=== PATIENT | female | born 1955 | race Caucasian/White ===

== ENCOUNTER 2024-08-02 23:07 | Observation (INO) ==
--- NOTE | 2024-08-02 23:28 | Emergency Department Note ---
Impression & Plan SVT (supraventricular tachycardia) ADMIT ED Provider Note HPI: History obtained from The patient is a 68-year-old female who presents the emergency department with chief complaint of palpitations. Patient states earlier this evening she had a sensation of chest pressure with palpitations and when she checked her Fitbit her heart rate was elevated in the 190s. Patient states that until this episode she was otherwise in her normal state of health. She does state that she recently returned home from a trip to [place]. On arrival here to the ED the patient is with stable blood pressure, heart rate is elevated in the 190s consistent with SVT on the monitor. ROS: - Per HPI Differential Diagnosis: Arrhythmia to include SVT, atrial fibrillation with RVR, ventricular tachycardia, WPW, amongst other potential pathologies. *Outpatient medications and allergy history reviewed. 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 Lab work shows no leukocytosis, hemoglobin is normal, platelet count is normal, CMP does not show any evidence of any critical findings, there is a mild transaminitis noted with AST of 52, ALT of 67, alk phos of 113. Troponin is elevated at 148. Presenting EKG showed evidence of SVT, patient's blood pressure was otherwise stable. Patient was given 12 mg of adenosine IV push with good conversion back to sinus rhythm. Patient tolerated this procedure well. Given the patient's recent trip to [place], CT angiography of the chest was obtained that does not show any evidence of PE. On my reassessment the patient remains in sinus rhythm on the monitor, she is resting comfortably in bed. I suspect that her troponin level is likely related to demand ischemia. Given her elevated troponin with new arrhythmia this evening I do feel that she would benefit from inpatient admission for trending of enzyme levels and further testing as well as cardiology consultation. The patient is in agreement to this plan. Case was discussed with the on-call hospitalist for [facility], Dr. Acuna, and the patient was placed for admission in stable condition. Consultants/Discussions held with other healthcare providers: -Hospitalist, Dr. Acuna Disposition discussion held by myself with: -Patient and family at bedside * CRITICAL CARE TIME: ( 46 ) minutes -Stabilization of arrhythmia/SVT requiring IV adenosine for conversion back to sinus rhythm, time spent at the bedside, interpretation of diagnostic studies including multiple EKGs, discussion with other healthcare providers and arrangement of admission. Diagnosis: 1. SVT, acute 2. Elevated troponin, acute 3. Transaminitis, acute, mild, nonspecific Disposition: Admission Balwinder Mccallum DO Emergency Medicine Past Med/Surg History Problem List (Updated 08/03/24 @ 01:23 by Balwinder Mccallum DO) SVT (supraventricular tachycardia) (Acute) Social History Smoking Status: Unknown if ever smoked Feels Safe at Home: Yes Allergies Allergies Allergy/AdvReac Type Severity Reaction Status Date / Time No Known Allergies Allergy Unverified 02/14/11 18:18 Home Meds Home Medications Medication Instructions Recorded Confirmed Ascorbic Acid (Vitamin C *) 500 mg PO DAILY ##0 02/14/11 Fish Oil ([place]-3) 1 cap PO ##0 02/14/11 Ibuprofen (Advil) 200 mg PO ##0 02/14/11 Multivitamin 1 tab PO DAILY ##0 02/14/11 Results & Data (ED) Vital Signs Vital Signs - 24 hr 08/02/24 23:09 08/02/24 23:15 08/02/24 23:23 Temperature 36.9 C Temperature Source Temporal Artery Scan Pulse Rate 216 H 197 H 115 H Pulse Rate [Apical] Respiratory Rate 19 Respiratory Effort / Characteristics Respiratory Depth Respiratory Pattern Blood Pressure 114/87 Blood Pressure [Right Arm] Blood Pressure Mean 96 Blood Pressure Mean [Right Arm] Blood Pressure Position [Right Arm] Pulse Oximetry 95 Oxygen Delivery Method Room Air Sepsis Recent Fever Within 48 Hours No Sepsis New/Unexplained Change in Mental Status N/A Sepsis Action Taken by Nursing No Action Required 08/02/24 23:36 08/02/24 23:36 08/02/24 23:36 Temperature Temperature Source Pulse Rate Pulse Rate [Apical] 95 H Respiratory Rate 18 Respiratory Effort / Characteristics Non-Labored Spontaneous Respiratory Depth Normal Respiratory Pattern Regular Blood Pressure Blood Pressure [Right Arm] 102/74 Blood Pressure Mean Blood Pressure Mean [Right Arm] 83 Blood Pressure Position [Right Arm] Sitting Pulse Oximetry 97 96 96 Oxygen Delivery Method Room Air Room Air Room Air Sepsis Recent Fever Within 48 Hours Sepsis New/Unexplained Change in Mental Status Sepsis Action Taken by Nursing Laboratory Data 08/02/24 23:28 08/02/24 23:28 Lab Results 08/02/24 Range/Units 23:28 WBC 10.56 (4.8-10.8) K/ul RBC 4.85 (4.20-5.40) M/uL Hgb 15.5 (12.0-16.0) g/dl Hct 44.1 (37.0-47.0) % MCV 90.9 (80.0-100.0) fL MCH 32.0 (25.0-34.0) pg MCHC 35.1 (32.0-36.0) g/dL RDW Std Deviation 47.0 H (36.4-46.3) fL RDW Coeff of Prashanth 13.9 (11.5-14.5) % Plt Count 302 (130-400) K/uL MPV 9.0 L (9.4-12.4) fL Immature Gran % (Auto) 0.2 % Neut % (Auto) 60.7 % Lymph % (Auto) 27.7 % [place] % (Auto) 9.8 % Eos % (Auto) 0.9 % Baso % (Auto) 0.7 % Neut # (Auto) 6.41 (1.40-6.50) K/uL Lymph # (Auto) 2.93 (1.20-3.40) K/uL [place] # (Auto) 1.03 H (0.11-0.59) K/uL Eos # (Auto) 0.10 (0.00-0.50) K/uL Baso # (Auto) 0.07 (0.00-0.20) K/uL Immature Gran # (Auto) 0.02 (0.01-0.20) K/uL PT 10.3 (9.0-12.0) Seconds INR 0.9 (0.9-1.1) Sodium 138 (136-145) mmol/L Potassium 4.3 (3.5-5.1) mmol/L Chloride 104 (98-107) mmol/L Carbon Dioxide 23 (21-32) mmol/L Anion Gap 11 (3-11) BUN 14 (6-23) mg/dl Creatinine 1.18 (0.6-1.2) mg/dl Est Cr Clr Drug Dosing 37.4 ml/min eGFR 50.94 BUN/Creatinine Ratio 11.9 (10-20) Glucose 136 H (70-99(Fasting)) mg/dl Calcium 10.9 H (8.6-10.3) mg/dl Magnesium 2.2 (1.7-2.4) mg/dl Total Bilirubin 0.6 (0.2-1.0) mg/dl AST 52 H (13-39) U/L ALT 67 H (7-52) U/L Alkaline Phosphatase 113 H (34-104) U/L Troponin I High Sens 148.2 H* (0-14) pg/ml Total Protein 7.7 (6.0-8.3) gm/dl Albumin 4.4 (3.4-5.0) gm/dl Globulin 3.3 (2.5-4.0) gm/dl Albumin/Globulin Ratio 1.3 (0.9-2) Lipase 48 (11-82) U/L TSH 5.133 H (0.300-4.500) uIu/ml Free T4 0.86 (0.61-1.60) ng/dl Administered Medications Discontinued Medications Adenosine (Adenosine Iv Soln 3 Mg/Ml 2 Ml Vial) Confirm Administered Dose 6 mg IV .STK-MED ONE Stop: 08/02/24 23:17 Last Admin: 08/02/24 23:30 Dose: 12 mg Documented By: ISADORA Sodium Chloride (Nss) 1,000 mls @ 999 mls/hr IV .Q1H1M ONE Stop: 08/03/24 00:27 Last Infusion: 08/03/24 00:51 Dose: Infused Documented By: Admin: 08/02/24 23:30 Dose: 999 mls/hr Documented By: ISADORA Ioversol (Optiray 320 125ml) 82 ml IV ONCE ONE Stop: 08/03/24 00:42 Last Admin: 08/03/24 00:42 Dose: 82 ml Documented By: PLW Imaging Data Radiologist's Impression: Chest CTA 08/02/24 23:26 Exam(s): CTA CHEST IV Amt: 82 ml opti 320 EXAM: CT Angiography Chest With Intravenous Contrast CLINICAL HISTORY: Reason for exam: PE. TECHNIQUE: Axial computed tomographic angiography images of the chest with intravenous contrast. CTDI is 11.87 mGy and DLP is 5.94 mGy-cm. Automated exposure control was utilized for the study. A dose lowering technique was utilized adhering to the principles of ALARA. MIP reconstructed images were created and reviewed. COMPARISON: No relevant prior studies available. FINDINGS: LUNGS: No focal consolidation, pleural effusion, or pneumothorax. HEART: Within normal limits. VASCULATURE: No acute pulmonary embolism. THYROID: Within normal limits. MEDIASTINUM + LYMPH NODES: There are no pathologically enlarged mediastinal, hilar, or axillary lymph nodes. SUPERIOR ABDOMEN: The included portions of the superior abdomen are within normal limits. MUSCULOSKELETAL: Within normal limits. IMPRESSION: No acute pulmonary embolism. Electronically signed by: Marcus Bose MD 08/03/24 00:52 AM Discharge Plan Visit Data Chief Complaint: Cardiac Assessment Stated Complaint: HEART PALPATATIONS, CHEST PAIN, DIZZY, SOB ED Provider: Balwinder Mccallum Discharge Problem: SVT (supraventricular tachycardia) Forms Stand Alone Forms: [facility] [place] HitchedPic Prescriptions Prescriptions: No Action Ascorbic Acid (Vitamin C *) 500 MG tablet 500 mg PO DAILY Qty: 0 Fish Oil ([place]-3) 1 EA capsule 1 cap PO Qty: 0 Multivitamin tablet 1 tab PO DAILY Qty: 0 Ibuprofen (Advil) 200 MG tablet 200 mg PO Qty: 0 Referrals Referrals: Mark Prado MD [Outside Practitioners] -
[2024-08-02] MEDS: ADENOSINE IV SOLN 3 MG/ML 2 ML VIAL IV ONE (23:30)
[2024-08-02] MEDS: SODIUM CHLORIDE 0.9% 1,000 ML IV ONE (23:30)
[2024-08-02 23:47] LABS: Basophils # (auto) 0.07 K/uL (0.00-0.20); Basophils % (auto) 0.7 %; Eosinophils % (auto) 0.9 %; Hematocrit (blood only) 44.1 % (37.0-47.0); Hemoglobin 15.5 g/dl (12.0-16.0); Immature Granulocytes # (auto) 0.02 K/uL (0.01-0.20); Immature Granulocytes % (auto) 0.2 %; Lymphocytes # (auto) 2.93 K/uL (1.20-3.40); Lymphocytes % (auto) 27.7 %; Mean Corpuscular Hgb Conc 35.1 g/dL (32.0-36.0); Mean Corpuscular Volume 90.9 fL (80.0-100.0); Monocytes # (auto) 1.03 K/uL (0.11-0.59); Monocytes % (auto) 9.8 %; Neutrophils # (auto) 6.41 K/uL (1.40-6.50); Neutrophils % (auto) 60.7 %; Platelet Count 302 K/uL (130-400); RDW Coefficient of Variation 13.9 % (11.5-14.5); Red Blood Count 4.85 M/uL (4.20-5.40); White Blood Count 10.56 K/ul (4.8-10.8)
[2024-08-03 00:12] LABS: INR 0.9 (0.9-1.1); Prothrombin Time 10.3 Seconds (9.0-12.0)
[2024-08-03 00:13] LABS: Albumin Globulin Ratio 1.3 (0.9-2); Albumin Level 4.4 gm/dl (3.4-5.0); BUN Creatinine Ratio 11.9 (10-20); Bilirubin,Total 0.6 mg/dl (0.2-1.0); Calcium 10.9 mg/dl (8.6-10.3); Creatinine Clr Calc Pharmacy 37.4 ml/min; Globulin 3.3 gm/dl (2.5-4.0); Magnesium 2.2 mg/dl (1.7-2.4); Potassium 4.3 mmol/L (3.5-5.1); Total Protein 7.7 gm/dl (6.0-8.3)
[2024-08-03 00:22] LABS: Troponin I High Sensitivity 148.2 pg/ml (0-14)
[2024-08-03 00:28] LABS: Thyroid Stimulating Hormone 5.133 uIu/ml (0.300-4.500)
[2024-08-03] MEDS: OPTIRAY 320 125ml IV ONE (00:42)
--- NOTE | 2024-08-03 00:54 | CT Scan Report ---
Exam(s): CTA CHEST IV Amt: 82 ml opti 320 EXAM: CT Angiography Chest With Intravenous Contrast CLINICAL HISTORY: Reason for exam: PE. TECHNIQUE: Axial computed tomographic angiography images of the chest with intravenous contrast. CTDI is 11.87 mGy and DLP is 5.94 mGy-cm. Automated exposure control was utilized for the study. A dose lowering technique was utilized adhering to the principles of ALARA. MIP reconstructed images were created and reviewed. COMPARISON: No relevant prior studies available. FINDINGS: LUNGS: No focal consolidation, pleural effusion, or pneumothorax. HEART: Within normal limits. VASCULATURE: No acute pulmonary embolism. THYROID: Within normal limits. MEDIASTINUM + LYMPH NODES: There are no pathologically enlarged mediastinal, hilar, or axillary lymph nodes. SUPERIOR ABDOMEN: The included portions of the superior abdomen are within normal limits. MUSCULOSKELETAL: Within normal limits. IMPRESSION: No acute pulmonary embolism. Electronically signed by: Marcus Bose MD 08/03/24 00:52 AM
[2024-08-03 01:05] LABS: T4 Free Thyroxine 0.86 ng/dl (0.61-1.60)
[2024-08-03] MEDS: SODIUM CHLORIDE 0.9% 1,000 ML IV ONE ×2 (01:32→08:28)
[2024-08-03 01:40] LABS: Partial Thromboplastin Time 28 Seconds (21-31)
--- NOTE | 2024-08-03 01:58 | History & Physical Report ---
Date of Service August 03, 2024 Assessment & Plan (1) SVT (supraventricular tachycardia): Plan: PSVT Successful conversion post adenosine administration at the ER. Possibly from mild clinical dehydration given mild hypercalcemia rule out viral URTI Troponin elevation secondary to above Asymptomatic transaminitis Hyperglycemia rule out DM OBS PCU Respiratory BioFire IVF Follow troponin TTE, Cardiology consult Re: PSVT Follow LFTs, liver ultrasound for progression Check hemoglobin A1c DVT prophylaxis. SCDs Full code Patient requesting updates providers. Mr. Jasvir Tanner, contact #[phone]. Text document was generated using [employer] voice recognition software. It may contain grammatical or spelling errors. Kindly contact undersigned for clarification of any documentation item in question. History of Present Illness Chief Complaint: Palpitations, chest pressure Primary Care Provider: Cynthia Rinaldi PA-C History obtained from patient, family, and records. No significant medical history. Patient was lying down on a couch today when she experienced palpitations associated with achy chest pressure. [place] like she was going to pass out. Patient denies abdominal pain or dysuria symptoms. No decongestant/inordinate caffeine intake. Not drinking as much water yesterday secondary to possible congestion. Similar episode many years ago which led to a stress test as per patient. Patient noted to be in SVT upon arrival at the ER. Heart rate 200s. SVT terminated after adenosine administration at the ER. Patient currently comfortable. Medical History as above Surgical History : Cholecystectomy, cataract surgeries, fibula fracture surgery, wrist fracture surgery Family History : Breast cancer, DM, heart disease Personal/Social history : Non-smoker, no EtOH intake, medical payment poster Allergies Allergy/AdvReac Type Severity Reaction Status Date / Time No Known Allergies Allergy Unverified 08/03/24 01:25 Home Medications Medication Instructions Recorded Confirmed Type [place] 3 Fish Oil 1 cap PO DAILY ##0 02/14/11 08/03/24 History ascorbic acid (vitamin C) 500 mg 500 mg PO DAILY ##0 02/14/11 08/03/24 History tablet ibuprofen 200 mg tablet 200 mg PO Q6H PRN Pain ##0 02/14/11 08/03/24 History multivitamin 1 tab PO DAILY ##0 02/14/11 08/03/24 History Past Med/Surg History Problem List (Updated 10/03/24 @ 01:23 by Balwinder Mccallum DO) SVT (supraventricular tachycardia) (Acute) Social History Smoking Status: Never smoker Second Hand Exposure: No; Do You Dip or Chew Tobacco: No; Tobacco Cessation Education Requested by Patient: No Hx Alcohol Use: No Hx Substance Use: No Preferred Language: [place] Communication Ability: 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 Beliefs That Will Affect Care: None Current Living Situation: Spouse Other Information That Helps Us Care for You: No Feels Safe at Home: Yes Safety Concerns: Feels Safe At This Time Assistive Devices: None Review of Systems Review of Systems: As per HPI, all other systems reviewed and negative Physical Exam Physical Exam: GENERAL: Comfortable, pleasant, no respiratory distress SKIN: Normal color, warm HEENT: [place] palpebral conjunctivae, no ptosis, dry buccal mucosa NECK : Supple, no tenderness CHEST : CTA, no tenderness HEART : RRR, no obvious murmurs ABDOMEN: Some distention, nontender EXTREMITIES : No LE swelling/tenderness, no other conspicuous deformities noted NEUROLOGIC : Coherent, no facial asymmetry, no other gross focality Results & Data Results & Data Vital Signs (Past 12 Hours) Vital Signs Temp Pulse Pulse Resp BP BP Pulse Ox 08/03/24 01:08 81 18 99/73 L 95 08/02/24 23:36 96 08/02/24 23:36 95 H 18 102/74 96 08/02/24 23:36 97 08/02/24 23:23 115 H 08/02/24 23:15 197 H 08/02/24 23:09 36.9 C 216 H 19 114/87 95 O2 Del Method 08/03/24 01:08 Room Air 08/02/24 23:36 Room Air 08/02/24 23:36 Room Air 08/02/24 23:36 Room Air 08/02/24 23:23 08/02/24 23:15 08/02/24 23:09 Room Air Laboratory Results Laboratory Results WBC 10.56 K/ul (4.8-10.8) 08/02/24 23:28 RBC 4.85 M/uL (4.20-5.40) 08/02/24 23:28 Hgb 15.5 g/dl (12.0-16.0) 08/02/24 23:28 Hct 44.1 % (37.0-47.0) 08/02/24 23:28 MCV 90.9 fL (80.0-100.0) 08/02/24 23: MCH 32.0 pg (25.0-34.0) 08/02/24: MCHC 35.1 g/dL (32.0-36.0) 08/02/24: RDW Std Deviation 47.0 fL (36.4-46.3) H 08/02/24: RDW Coeff of Prashanth 13.9 % (11.5-14.5) 08/02/24: Plt Count 302 K/uL (130-400) 08/02/24: MPV 9.0 fL (9.4-12.4) L 08/02/24: Immature Gran % (Auto) 0.2 % 08/02/24 23: Neut % (Auto) 60.7 % 08/02/24 23: Lymph % (Auto) 27.7 % 08/02/24 23: [place] % (Auto) 9.8 % 08/02/24 23: Eos % (Auto) 0.9 % 08/02/24: Baso % (Auto) 0.7 % 08/02/24: Neut # (Auto) 6.41 K/uL (1.40-6.50) 08/02/24: Lymph # (Auto) 2.93 K/uL (1.20-3.40) 08/02/24 23: [place] # (Auto) 1.03 K/uL (0.11-0.59) H 08/02/24 23: Eos # (Auto) 0.10 K/uL (0.00-0.50) 08/02/24 23: Baso # (Auto) 0.07 K/uL (0.00-0.20) 08/02/24: Immature Gran # (Auto) 0.02 K/uL (0.01-0.20) 08/02/24 23: PT 10.3 Seconds (9.0-12.0) 08/02/24 23: INR 0.9 (0.9-1.1) 08/02/24 23: APTT 28 Seconds (21-31) 08/02/24 23:28 PTT Ratio 1.0 08/02/24 23:28 Sodium 138 mmol/L (136-145) 08/02/24 23:28 Potassium 4.3 mmol/L (3.5-5.1) 08/02/24 23:28 Chloride 104 mmol/L (98-107) 08/02/24 23:28 Carbon Dioxide 23 mmol/L (21-32) 08/02/24 23:28 Anion Gap 11 (3-11) 08/02/24 23:28 BUN 14 mg/dl (6-23) 08/02/24 23:28 Creatinine 1.18 mg/dl (0.6-1.2) 08/02/24 23:28 Est Cr Clr Drug Dosing 37.4 ml/min 08/02/24 23: eGFR 50.94 08/02/24 23:28 BUN/Creatinine Ratio 11.9 (10-20) 08/02/24 23:28 Glucose 136 mg/dl (70-99(Fasting)) H 08/02/24 23:28 Calcium 10.9 mg/dl (8.6-10.3) H 08/02/24 23:28 Magnesium 2.2 mg/dl (1.7-2.4) 08/02/24 23:28 Total Bilirubin 0.6 mg/dl (0.2-1.0) 08/02/24 23:28 AST 52 U/L (13-39) H 08/02/24 23:28 ALT 67 U/L (7-52) H 08/02/24 23:28 Alkaline Phosphatase 113 U/L (34-104) H 08/02/24 23:28 Troponin I High Sens 148.2 pg/ml (0-14) H* 08/02/24 23:28 Total Protein 7.7 gm/dl (6.0-8.3) 08/02/24 23:28 Albumin 4.4 gm/dl (3.4-5.0) 08/02/24 23:28 Globulin 3.3 gm/dl (2.5-4.0) 08/02/24 23:28 Albumin/Globulin Ratio 1.3 (0.9-2) 08/02/24 23:28 Lipase 48 U/L (11-82) 08/02/24 23:28 TSH 5.133 uIu/ml (0.300-4.500) H 08/02/24 23:28 Free T4 0.86 ng/dl (0.61-1.60) 08/02/24 23:28 Impressions Chest CTA 08/02/24 23:26 Exam(s): CTA CHEST IV Amt: 82 ml opti 320 EXAM: CT Angiography Chest With Intravenous Contrast CLINICAL HISTORY: Reason for exam: PE. TECHNIQUE: Axial computed tomographic angiography images of the chest with intravenous contrast. CTDI is 11.87 mGy and DLP is 5.94 mGy-cm. Automated exposure control was utilized for the study. A dose lowering technique was utilized adhering to the principles of ALARA. MIP reconstructed images were created and reviewed. COMPARISON: No relevant prior studies available. FINDINGS: LUNGS: No focal consolidation, pleural effusion, or pneumothorax. HEART: Within normal limits. VASCULATURE: No acute pulmonary embolism. THYROID: Within normal limits. MEDIASTINUM + LYMPH NODES: There are no pathologically enlarged mediastinal, hilar, or axillary lymph nodes. SUPERIOR ABDOMEN: The included portions of the superior abdomen are within normal limits. MUSCULOSKELETAL: Within normal limits. IMPRESSION: No acute pulmonary embolism. Electronically signed by: Marcus Bose MD 08/03/24 00:52 AM Diagnostic Findings EKG as per my interpretation :Rate 200, SVT, normal axis, ST depression anterolateral leads
[2024-08-03] MEDS ORDERED: traMADol HCL 50 MG TABLET PO PRN (02:00)
[2024-08-03] MEDS ORDERED: hydrOXYzine HCl 10 MG TAB PO PRN (02:00)
[2024-08-03] MEDS ORDERED: ACETAMINOPHEN 325 MG TAB PO PRN (02:00)
[2024-08-03] MEDS ORDERED: PROMETHAZINE 6.25 MG/50.25 ML BAG IV PRN (02:00)
[2024-08-03 02:35] LABS: Troponin I High Sensitivity 349.5 pg/ml (0-14)
[2024-08-03 05:05] LABS: Adenovirus PCR Not Detected (NotDetected); Bordetella parapertussis PCR Not Detected (NotDetected); Bordetella pertussis PCR Not Detected (NotDetected); Chlamydia pneumoniae PCR Not Detected (NotDetected); Coronavirus 229E PCR Not Detected (NotDetected); Coronavirus CoV-2 (COVID19)PCR DETECTED (NotDetected); Coronavirus HKU1 PCR Not Detected (NotDetected); Coronavirus NL63 PCR Not Detected (NotDetected); Coronavirus OC43PCR Not Detected (NotDetected); Human Metapneumovirus PCR Not Detected (NotDetected); Influenza A PCR Not Detected (NotDetected); Influenza B PCR Not Detected (NotDetected); Mycoplasma pneumoniae PCR Not Detected (NotDetected); Parainfluenza Virus 1 PCR Not Detected (NotDetected); Parainfluenza Virus 2 PCR Not Detected (NotDetected); Parainfluenza Virus 3 PCR Not Detected (NotDetected); Parainfluenza Virus 4 PCR Not Detected (NotDetected); Respiratory Syncytial VirusPCR Not Detected (NotDetected); Rhinovirus/Enterovirus PCR Not Detected (NotDetected)
[2024-08-03 07:12] LABS: Albumin Level 3.4 gm/dl (3.4-5.0); Bilirubin Direct 0.1 mg/dl (0-0.2); Bilirubin,Total 0.6 mg/dl (0.2-1.0); Total Protein 5.7 gm/dl (6.0-8.3)
[2024-08-03 07:20] LABS: Troponin I High Sensitivity 496.9 pg/ml (0-14)
--- NOTE | 2024-08-03 07:20 | Electrocardiogram Report ---
Test Reason : Blood Pressure : */* mmHG Vent. Rate : 198 BPM Atrial Rate : * BPM P-R Int : * ms QRS Dur : 64 ms QT Int : 216 ms P-R-T Axes : * 30 92 degrees QTcB Int : 392 ms Supraventricular tachycardia Abnormal ECG Confirmed by Zak Rm ([id number]) on 08/03/2024 7:20:30 AM Referred By: Confirmed By: Zak Rm
--- NOTE | 2024-08-03 07:24 | Hospitalist Progress Note ---
Date of Service August 03, 2024 Assessment & Plan (1) SVT (supraventricular tachycardia): Plan Pt is a 68yoF with no significant past medical history presenting for evaluation of palpitations. Found to be in SVT in the ED. PSVT Presented with HR in the 200s Successful conversion post adenosine administration in the ER. Pt tested positive for covid on respiratory biofire CTA chest unremarkable IV fluids Echo pending Cardiology consulted, appreciate recs COVID-19 Infection Pt with recent URI symptoms Pt tested positive for covid on respiratory biofire No noted hypoxia CTA chest unremarkable Symptomatic/supportive treatment Continue to monitor Troponin elevation Trop elevated at 148.2 to 349.5 to 496.9 EKG with noted SVT as above likely elevated in setting of above Cardiology consulted, appreciate further recs Asymptomatic transaminitis Liver enzymes elevated on admission Currently normal on recheck liver ultrasound for progression Continue to monitor Hypercalcemia Calcium elevated PTH normal Follow ionized [place] Hyperglycemia rule out DM Hgba1c pending Diet: currently NPO DVT prophylaxis: SCDs CODE STATUS: Full code Dispo: Home once medically stable Admission and Anticipated Discharge Date Admission Date: August 03, 2024 Results & Data Results & Data Vital Signs (Past 12 Hours) Vital Signs Temp Pulse Pulse Resp BP BP Pulse Ox 08/03/24 02:59 36.8 C 70 18 104/71 95 08/03/24 02:42 78 08/03/24 02:41 36.8 C 70 18 104/71 95 08/03/24 02:16 78 99/73 L 95 08/03/24 01:08 81 18 99/73 L 95 08/02/24 23:36 96 08/02/24 23:36 95 H 18 102/74 96 08/02/24 23:36 97 08/02/24 23:23 115 H 08/02/24 23:15 197 H 08/02/24 23:09 36.9 C 216 H 19 114/87 95 O2 Del Method 08/03/24 02:59 Room Air 08/03/24 02:42 08/03/24 02:41 Room Air 08/03/24 02:16 Room Air 08/03/24 01:08 Room Air 08/02/24 23:36 Room Air 08/02/24 23:36 Room Air 08/02/24 23:36 Room Air 08/02/24 23:23 08/02/24 23:15 08/02/24 23:09 Room Air Diagnostic Findings Chest CTA 08/02/24 23:26 Exam(s): CTA CHEST IV Amt: 82 ml opti 320 EXAM: CT Angiography Chest With Intravenous Contrast CLINICAL HISTORY: Reason for exam: PE. TECHNIQUE: Axial computed tomographic angiography images of the chest with intravenous contrast. CTDI is 11.87 mGy and DLP is 5.94 mGy-cm. Automated exposure control was utilized for the study. A dose lowering technique was utilized adhering to the principles of ALARA. MIP reconstructed images were created and reviewed. COMPARISON: No relevant prior studies available. FINDINGS: LUNGS: No focal consolidation, pleural effusion, or pneumothorax. HEART: Within normal limits. VASCULATURE: No acute pulmonary embolism. THYROID: Within normal limits. MEDIASTINUM + LYMPH NODES: There are no pathologically enlarged mediastinal, hilar, or axillary lymph nodes. SUPERIOR ABDOMEN: The included portions of the superior abdomen are within normal limits. MUSCULOSKELETAL: Within normal limits. IMPRESSION: No acute pulmonary embolism. Electronically signed by: Marcus Bose MD 08/03/24 00:52 AM
[2024-08-03 07:31] LABS: Basophils # (auto) 0.04 K/uL (0.00-0.20); Basophils % (auto) 0.5 %; Eosinophils # (auto) 0.02 K/uL (0.00-0.50); Eosinophils % (auto) 0.3 %; Hematocrit (blood only) 35.6 % (37.0-47.0); Hemoglobin 11.8 g/dl (12.0-16.0); Immature Granulocytes # (auto) 0.01 K/uL (0.01-0.20); Immature Granulocytes % (auto) 0.1 %; Lymphocytes # (auto) 2.52 K/uL (1.20-3.40); Lymphocytes % (auto) 33.6 %; Mean Corpuscular Hemoglobin 30.8 pg (25.0-34.0); Mean Corpuscular Hgb Conc 33.1 g/dL (32.0-36.0); Mean Platelet Volume 9.1 fL (9.4-12.4); Monocytes # (auto) 0.67 K/uL (0.11-0.59); Monocytes % (auto) 8.9 %; Neutrophils # (auto) 4.25 K/uL (1.40-6.50); Neutrophils % (auto) 56.6 %; Platelet Count 203 K/uL (130-400); RDW Coefficient of Variation 14.1 % (11.5-14.5); RDW Standard Deviation 48.3 fL (36.4-46.3); Red Blood Count 3.83 M/uL (4.20-5.40); White Blood Count 7.51 K/ul (4.8-10.8)
[2024-08-03 07:48] LABS: Estimated Average Glucose 111 mg/dl; Hemoglobin A1C 5.5 % (4.5-5.6)
[2024-08-03 07:50] LABS: BUN Creatinine Ratio 15.9 (10-20); Calcium 8.5 mg/dl (8.6-10.3); Creatinine Clr Calc Pharmacy 64.8 ml/min
--- NOTE | 2024-08-03 08:38 | Cardiology Consultation ---
Date of Consultation August 03, 2024 Assessment & Plan (1) SVT (supraventricular tachycardia): (2) Elevated troponin: (3) COVID: Plan Patient admitted with episode of sustained SVT, likely lasting approx 5 hours, HR around 200 bmp. Converted to NSR after 1 dose of IV adenosine. No recurrent/sustained arrhythmias overnight. Rare ectopy and one 10 beat run of atrial tach this morning (no symptoms) SVT in setting of acute respiratory illness/dehydration. +COVID 19. Supportive care recommended. We discussed her episode of SVT. Likely would benefit from low dose metoprolol. However she is resistant to medications. Her BP is borderline low this morning, so will hold off on initiation right now. Monitor on telemetry. Elevated troponin on admission, likely demand ischemia due to tachyarrhythmia persistent for several hours. Trending upward to 496 this morning. She is currently asymptomatic without anginal complaints EKG this morning demonstrated normal sinus without ischemic changes. Echocardiogram is pending. If echo is without wall motion abnormalities or changes, I do not think further cardiac testing as an inpatient is warranted. I would recommend med management with ASA and statin. however, she is again resistant to medications. Consider nuclear lexiscan stress test as outpatient. Given her prior ankle injury, I do not think she would ambulate on a treadmill. Further recommendations pending echo results and evaluation with Dr. Adam. I spent a total of 60 minutes on the date of service in preparation, delivery, and documentation of the care provided to this patient, excluding any time spent in the performance of separately billed services. Mita Barrett PA-C Department of Cardiology, [facility] This chart was completed in part utilizing Speech Voice Recognition Software. Grammatical errors, random word insertions, pronoun errors, and incomplete sentences are an occasional consequence of this system due to software limitations, ambient noise, and hardware issues. Any formal questions or concerns about the content, text, or information contained within the body of this dictation should be directly addressed to the provider for clarification. Supervising Physician Co-Signing Physician Notes Patient was seen and personally examined. Full assessment and plan outlined as above. Care and management discussed with advanced provider and personally endorsed 68-year-old female returning from vacation who developed symptoms of upper respiratory infection in the last 24 to 48-hour, mild and severe Last evening developed onset sense of heart pounding chest with Fitbit alarming to heart rate of 195 to 200 bpm. Patient ultimately sought ER evaluation where she was found to be in supraventricular tachycardia promptly responded to IV adenosine Presenting EKG narrow complex tachycardia/SVT rate [address]. [address] segment abnormality Initial troponins elevated Echocardiogram with preserved LV function, EKG normal this morning Familial history of premature coronary disease and personal history of hyperlipidemia noted Issues addressed as follows. Plan personally discussed in detail with patient 1. Supraventricular tachycardia with rapid ventricular response rate greater than 200: Discussed mechanisms and management in detail. No prior history of sustained episodes but did seek ER evaluation many years back for similar compl aints. Current event may have been precipitated by acute respiratory illness. Will recommend low-dose metoprolol succinate 12.5 mg p.o. daily patient agreeable. Follow-up with electrophysiology, discussed catheter ablation 2. Elevated troponin: With normal EKG and echocardiogram likely demand based secondary to her very rapid heart rate response. Will still warrant further investigation with plan stress nuclear imaging post hospital discharge. Would recommend discharging on aspirin 81 mg/day and statin as below 3. Dyslipidemia/hyperlipidemia with family history of premature coronary d isease: Recommend rosuvastatin 20 mg p.o. daily Will make arrangements for stress testing as well as follow-up with EP I spent a total of 25 minutes on the date of service in preparation, delivery, and documentation of the care provided to this patient, excluding any time spent in the performance of separately billed services. History of Present Illness Reason for Consultation: SVT Requesting Physician: Deann Ramsayist Attending Physician: Dr. Adam History of Present Illness Patient is a 68 year old female who has been recently sick with "cold like symptoms" since Wednesday, with fatigue, sinus congestion, cough, was admitted to [facility] with complaints of palpitations/tachycardia and chest heaviness lasting several hours last night. Symptoms started around 6:00 PM when she was alerted by her fit bit that her HR was elevated in the 190's. She was home by herself and waited for her to return home from work. Around 9:00 PM her HR was still elevated around 200 and she called her daughter who is a nurse, and she recommended the ER. She came to the hospital around 10 PM. She was found to be in SVT around 200 bmp. She was treated with IV adenosine x1 and converted to NSR. Repeat EKG was not done at that time. She tested + for COVID 19 in the ER. TSH also minimally elevated Minimally elevated troponin at 148, 349, 496 this morning. Repeat EKG this morning demonstrating NSR without acute ischemic changes. She denies history of cardiovascular problems or history. She admits to having "skipped beats" at times, but no history of sustained arrhythmias. She had a stress echo in 2019 that was negative for inducible ischemia, with normal LVEF, grade II diastolic dysfunction. She was told she had "high cholesterol" in the past but declined therapy, opting for diet modifications. This was not rechecked as an outpatient in many years. She admits she does not like going to doctor visits and declines medications. She feels well this morning, hoping for discharge. Denies symptoms or recurrent palpitations. No chest pain or dyspnea. She is typically fairly active, but fractured her ankle awhile ago and has been limited in her mobility. Allergies Allergy/AdvReac Type Severity Reaction Status Date / Time No Known Allergies Allergy Unverified 08/03/24 01:25 Home Medications Medication Instructions Recorded Confirmed Type [place] 3 Fish Oil 1 cap PO DAILY ##0 02/14/11 08/03/24 History ascorbic acid (vitamin C) 500 mg 500 mg PO DAILY ##0 02/14/11 08/03/24 History tablet ibuprofen 200 mg tablet 200 mg PO Q6H PRN Pain ##0 02/14/11 08/03/24 History multivitamin 1 tab PO DAILY ##0 02/14/11 08/03/24 History Patient History Social History Smoking Status: Never smoker Second Hand Exposure: No; Do You Dip or Chew Tobacco: No; Tobacco Cessation Education Requested by Patient: No Hx Alcohol Use: No Hx Substance Use: No Preferred Language: Syriac Communication Ability: Effective Batch Analyst Required: No Beliefs That Will Affect Care: None Current Living Situation: Spouse Other Information That Helps Us Care for You: No Feels Safe at Home: Yes Safety Concerns: Feels Safe At This Time Assistive Devices: None Review of Systems Review of Systems: All systems reviewed & are unremarkable except as noted in HPI & below Physical Exam Constitutional: WD/WN, vitals as above well developed; no acute distress Neck: trachea midline, no thyromegaly Respiratory: no labored breathing Auscultation: + rhonchi Cardiovascular: Rate/Rhythm: regular rate and regular rhythm Heart Sounds: normal S1; no murmur Vessels: no JVD Extremities: no edema Gastrointestinal (Abdomen): normal bowel sounds, soft, nontender, no hepatosplenomegaly Musculoskeletal: no cyanosis or clubbing, extremities motor strength 5/5 Neurologic: PERRL, EOMI, accommodation nl, no face palsy, no dysarthria Results & Data Vital Signs (Past 12 Hours) Vital Signs Temp Pulse Pulse Resp BP BP Pulse Ox 08/03/24 08:16 36.8 C 79 19 96/62 L 95 08/03/24 02:59 36.8 C 70 18 104/71 95 08/03/24 02:42 78 08/03/24 02:41 36.8 C 70 18 104/71 95 08/03/24 02:16 78 99/73 L 95 08/03/24 01:08 81 18 99/73 L 95 08/02/24 23:36 96 08/02/24 23:36 95 H 18 102/74 96 08/02/24 23:36 97 08/02/24 23:23 115 H 08/02/24 23:15 197 H 08/02/24 23:09 36.9 C 216 H 19 114/87 95 O2 Del Method 08/03/24 08:16 Room Air 08/03/24 02:59 Room Air 08/03/24 02:42 08/03/24 02:41 Room Air 08/03/24 02:16 Room Air 08/03/24 01:08 Room Air 08/02/24 23:36 Room Air 08/02/24 23:36 Room Air 08/02/24 23:36 Room Air 08/02/24 23:23 08/02/24 23:15 08/02/24 23:09 Room Air Laboratory Results Cardiac Enzymes 08/02/24 08/03/24 08/03/24 Range/Units 23:28 01:26 06:31 AST 52 H 37 (13-39) U/L Troponin I High Sens 148.2 H* 349.5 H* D 496.9 H* D (0-14) pg/ml Coagulation 08/02/24 Range/Units 23:28 PT 10.3 (9.0-12.0) Seconds APTT 28 (21-31) Seconds CBC 08/02/24 08/03/24 Range/Units 23:28 06:31 WBC 10.56 7.51 (4.8-10.8) K/ul RBC 4.85 3.83 L (4.20-5.40) M/uL Hgb 15.5 11.8 L D (12.0-16.0) g/dl Hct 44.1 35.6 L (37.0-47.0) % Plt Count 302 203 (130-400) K/uL Neut # (Auto) 6.41 4.25 (1.40-6.50) K/uL Lymph # (Auto) 2.93 2.52 (1.20-3.40) K/uL [place] # (Auto) 1.03 H 0.67 H (0.11-0.59) K/uL Eos # (Auto) 0.10 0.02 (0.00-0.50) K/uL Baso # (Auto) 0.07 0.04 (0.00-0.20) K/uL Comprehensive Metabolic Panel 08/02/24 08/03/24 Range/Units 23:28 06:31 Sodium 138 140 (136-145) mmol/L Potassium 4.3 4.0 (3.5-5.1) mmol/L Chloride 104 110 H (98-107) mmol/L Carbon Dioxide 23 23 (21-32) mmol/L BUN 14 11 (6-23) mg/dl Creatinine 1.18 0.69 D (0.6-1.2) mg/dl Glucose 136 H 110 H (70-99(Fasting)) mg/dl Calcium 10.9 H 8.5 L D (8.6-10.3) mg/dl Direct Bilirubin 0.1 (0-0.2) mg/dl AST 52 H 37 (13-39) U/L ALT 67 H 48 (7-52) U/L Alkaline Phosphatase 113 H 81 (34-104) U/L Total Protein 7.7 5.7 L D (6.0-8.3) gm/dl Albumin 4.4 3.4 (3.4-5.0) gm/dl Intake and Output 08/02/24 08/03/24 08/03/24 22:59 06:59 14:59 Intake Total 1050 / 1050 1000 / 1000 Balance 1050 / 1050 1000 / 1000 Intake: IV 1000 / 1000 1000 / 1000 Sodium Chloride 0.9% 1,000 ml @ 1000 / 1000 1000 / 1000 200 mls/hr IV .Q5H ONE Rx#: [id number] Oral 50 / 50 Other: Weight 63.1 kg Weight Measurement Method Built in [facility] Diagnostic Findings Telemetry reviewed: NSR overnight in the 80's. One brief episode of Atrial tach lasting about 10 beats around 7:00 AM. No sustained episodes echocardiogram - pending EKG reviewed from admission on 08/02/24: SVT at [address] wave abnormality in inferolateral leads Repeat EKG this morning, 08/03/24: NSR at 77 bmp Normal EKG No significant changes noted. Chest CTA 08/02/24 23:26 TECHNIQUE: Axial computed tomographic angiography images of the chest with intravenous contrast. CTDI is 11.87 mGy and DLP is 5.94 mGy-cm. Automated exposure control was utilized for the study. A dose lowering technique was utilized adhering to the principles of ALARA. MIP reconstructed images were created and reviewed. COMPARISON: No relevant prior studies available. FINDINGS: LUNGS: No focal consolidation, pleural effusion, or pneumothorax. HEART: Within normal limits. VASCULATURE: No acute pulmonary embolism. THYROID: Within normal limits. MEDIASTINUM + LYMPH NODES: There are no pathologically enlarged mediastinal, hilar, or axillary lymph nodes. SUPERIOR ABDOMEN: The included portions of the superior abdomen are within normal limits. MUSCULOSKELETAL: Within normal limits. IMPRESSION: No acute pulmonary embolism. Electronically signed by: Marcus Bose MD 08/03/24 00:52 AM Prior outside data: stress echo report reviewed dated April 2019: Interpretation Summary The primary indication after review was deemed appropriate and the examination was performed. The stress echo is negative for inducible ischemia. Occasional PAC's with stress. Normal HR and BP response to exercise. Above average exercise tolerance. At rest, normal LV chamber size and wll thickness. Normal LV systolic function without regional wall motion abnormality, EF 60-65%. Grade II diastolic dysfunction. Trace mitral regurgitation. Mild tricuspid regurgitation. Medications Administered Current Inpatient Medications Acetaminophen (Acetaminophen 325 Mg Tab) 650 mg PO QID PRN PRN Reason: pain/fever Stop: 09/02/24 01:59 Hydroxyzine HCl (Hydroxyzine Hcl 10 Mg Tab) 10 mg PO QID PRN PRN Reason: Anxiety Stop: 09/02/24 01:59 Promethazine HCl (Phenergan) 6.25 mg in 50.25 mls @ 201 mls/hr IV Q6H PRN PRN Reason: Nausea And Vomiting Stop: 09/02/24 01:59 Sodium Chloride (Nss) 1,000 mls @ 100 mls/hr IV .Q10H ONE Stop: 08/03/24 15:55 Last Admin: 08/03/24 08:28 Dose: 100 mls/hr Multivitamins (Multivitamin Tab) 1 tab PO DAILY NOELLE Stop: 09/02/24 08:59 Last Admin: 08/03/24 09:26 Dose: 1 tab Tramadol HCl (Tramadol Hcl 50 Mg Tablet) 25 - 50 mg PO Q4H PRN PRN Reason: Pain Stop: 09/02/24 01:59
[2024-08-03] MEDS: ENOXAPARIN INJ 40 MG/0.4 ML SYR SQ SCH (09:09)
[2024-08-03] MEDS: MULTIVITAMIN TAB PO SCH (09:26)
--- OUTSIDE RECORDS SUMMARY | 2024-08-03 11:06 | External Medical Summary | Summary of Care ---
Author Name Unknown Organization [facility] Address [address] [place] [address] Phone [phone] Care Team Providers Care Workday Financials Consultant Name Role Phone Morro MORENO MD, [place] Primary Care Provider [phone] Encounter Details Date Type Department Care Team (Late st Contact Info) Description 03/18/2024 Patient Reported Data Patient Survey Ortho OBERD Allergies No known active allergiesdocumented as of this encounter (statuses as of 03/18/2024) Medications Medication Sig Dispensed Refills Start Date End Date Status DAILY MULTIVITAMIN PO TABS 0 05/28/2009 Active OMEGA-3 FISH OIL 1000 MG PO CAPS 1 cap daily 0 Active VITAMIN C 500 MG PO TABS 1 tablet daily 0 Active documented as of this encounter (statuses as of 03/18/2024) Active Problems Problem Noted Date Diagnosed Date Closed fracture of shaft of left fibula 11/24/19 24 Dyslipidemia, goal LDL below 130 02/06/2013 FAMILY HISTORY OF HEART DISEASE (ISCHEMIC) 02/21 Overview: father and brother documented as of this encounter (statuses as of 03/18/2024) Immunizations Name Administration Dates Next Due Diptheria/Tetanus (Adult) 04/30/1997 OPV - Polio Virus Vaccine (Oral) 04/27/1983 PPD 07/29/2015 Seasonal Influenza, Quadriva lent, No Preserve, IM 08/28/2015 TD - Tetanus/Diptheria (ADULT) 04/27/1993,1982,04/27/1983 TD, Preservative Free 05/09/2020 TDAP (age 11 and older)(Adacel) 03/27/2010 documented as of this encounter Social History Tobacco Use Types Packs/Day Years Used Date Smoking Tobacco: Never Smokeless Tobacco: Never Alcohol Use Standard Drinks/Week Comments No 0 (1 standard drink = 0.6 oz pur e alcohol) PHQ-2 Answer Date Recorded PHQ-2 Score 0 05/09/2020 Hunger Vital Sign Answer Date Recorded Within the past 12 months, y ou worried that your food would run out before you got the money to buy more. Never true 03/14/20 24 Within the past 12 months, t he food you bought just didn't last and you didn't have money to get more. Never true 03/14/2024 Sex and Gender Information Value Date Recorded Sex Assigned at Female 03/14/2024 10:44 AM EDT Gender Identity Female 03/14/2024 10:44 AM EDT Sexual Orientation Straight 03/14/2024 10 :44 AM EDT Job Start Date Occupation Industry Not on file Not on file Not on file documented as of this encounter Plan of Treatment Upcoming Encounters Date Type Department Care Team (Late st Contact Info) Description 03/21/2024 3:20 PM EDT Office Visit Family Practice [facility] [address] [place] [address] Cynthia Rinaldi PA-C [address] [facility] [place] [address] 03/23/2024 7:30 AM EDT Telemedicine Orthopaedics [facility] [address] [address] Robin Vargas MD [address] [phone] Scheduled Procedures Name Priority Associated Diagnoses Date/Ti me COLONOSCOPY FLEXIBLE PROXIMA L DIAGNOSTIC Recall Encounter for screening colonoscopy Health Maintenance Due Date Last Done Comments Cologuard 2002 Fecal Occult Blood Test 2002 Sigmoidoscopy 2002 Zoster Vaccines (1 of 2) 2007 Depression Screening 05/09/2021 05/09/2020 Diabetes Screening 03/16/2022 03/16/2019, 0 06/02/2016, 02/09/2013, Additional history exists Pneumococcal Vaccine: 65+ Years (1 of 1 - PCV) 2022 COVID-19 Vaccine (1 - 2022- season) 2023 Influenza Vaccine (FLU shot) (Season Ended) 2024 08/28/2015, 11/17/2000, 11/14/1999 Mammogram 02/27/2025 02/28/2024, 05/02, 05/23/2020, Additional history exists Lipid Panel 03/25/2026 03/25/2021, 03/01, 06/02/2016, Additional history exists Colonoscopy 04/27/2029 04/27/2019, 04/02, 04/06/2008 Colorectal Cancer Screening 04/27/2029 DTaP,Tdap,and Td Vaccines (3 - Td or Tdap) 05/09/2030 05/09/2020, 03/27/2010, 04/30/1997, Additional history exists DXA Scan 03/07/2034 03/07/2024 Pap Smear Discontinued 03/08/2019, 0812/2015, 02/06/2013, Additional history exists GARDASIL-HPV IMMUNIZATION SERIES Aged Out No longer eligible based on patient's age to complete this topic Hepatitis B Aged Out No longer eligi ble based on patient's age to complete this topic MENINGOCOCCAL (MENACTRA/MENVEO) Aged Out No longer eligible based on patient's age to complete this topic documented as of this encounter Medical Devices Implanted Type Area Marine Driller Device Identifier Shelf Expiration Date Model / Serial / Lot Screw Bone 3.5x12mm Hand Titanium Nonsterile Non Saskia Wrst - [id number] Implanted:Qty: 1 on 11/29/2023 by Robin Vargas MD at OR [facility] Left: Ankle DAMIAN : ORTHOPAEDICS [id number] / / Screw Bone 2.7x12mm Hand Titanium Nonsterile Non Saskia Wrst - [id number] Implanted:Qty: 1 on 11/29/2023 by Robin Vargas MD at OR [facility] Left: Ankle DAMIAN : ORTHOPAEDICS [id number] / / Plate Bone [id number] 5hole Profile Titanium Nonsterile - [id number] Implanted:Qty: 1 on 11/29/2023 by Robin Vargas MD at OR [facility] Left: Ankle DAMIAN : [id number] / / Screw Bone 3.5x12mm Ankle Titanium Nonsterile Latexfree - [id number] Implanted:Qty: 5 on 11/29/2023 by Robin Vargas MD at OR [facility] Left: Ankle DAMIAN : ORTHOPA[employer]ICS [id number] / / Screw Bone 3.5x10mm Ankle Titanium Nonsterile Latexfree - [id number] Implanted:Qty: 1 on 11/29/2023 by Robin Vargas MD at OR [facility] Left: Ankle DAMIAN : ORTHOPA[employer]ICS [id number] / / documented as of this encounter Advance Directives Latest Code Status on File Code Status Date Activated Date Inactivated Comments Full Code 11/29/2023 10:54 AM 11/29/2023 4:17 PM This order reflects the patients wishes and were consensually agreed upon. Question Answer Comments Discussion of Advance Directives occurred with: Not Discussed due to patient's condition Code Status History Code Status Date Activated Date Inactivated Comments Full Code 11/29/2023 8:01 AM 11/29/2023 10:54 AM This order reflects the patients wishes and were consensually agreed upon. Question Answer Comments Discussion of Advance Directives occurred with: Not Discussed due to patient's condition Care Teams Workday Financials Consultant Relationship Specialty Start Date End Date Rancho Hooker III, MD [address] [place] [address] PCP - General Family Medicine 04/27/19 documented as of this encounter
--- OUTSIDE RECORDS SUMMARY | 2024-08-03 11:06 | External Medical Summary | Summary of Care ---
Author Name Unknown Organization [facility] Address [address] [place] [address] Phone [phone] Care Team Providers Care Molder Floor Name Role Phone Cynthia Rinaldi PA-C Primary Care Provider [phone] Encounter Details Date Type Department Care Team (Late st Contact Info) Description 03/10/2024 Telephone Family Practice [facility] [address] [place] [address] Eugene Hurt, [address] [place] [address] Allergies No known active allergiesdocumented as of this encounter (statuses as of 06/09/2024) Medications Medication Sig Dispensed Refills Start Date End Date Status DAILY MULTIVITAMIN PO TABS 0 05/28/2009 Active OMEGA-3 FISH OIL 1000 MG PO CAPS 1 cap daily Active VITAMIN C 500 MG PO TABS 1 tablet daily Active documented as of this encounter (statuses as of 06/09/2024) Active Problems Problem Noted Date Diagnosed Date Closed fracture of shaft of left fibula 11/24/19 24 Dyslipidemia, goal LDL below 130 02/06/2013 FAMILY HISTORY OF HEART DISEASE (ISCHEMIC) 02/21 Overview: father and brother documented as of this encounter (statuses as of 06/09/2024) Immunizations Name Administration Dates Next Due Diptheria/Tetanus (Adult) 04/30/1997 OPV - Polio Virus Vaccine (Oral) 04/27/1983 PPD 07/29/2015 Seasonal Influenza, Quadriva lent, No Preserve, IM 08/28/2015 TD - Tetanus/Diptheria (ADULT) 04/27/1993,1982,04/27/1983 TD, Preservative Free 05/09/2020 TDAP, Age 7 and older, IM (Adacel) 03/27/2010 documented as of this encounter Social History Tobacco Use Types Packs/Day Years Used Date Smoking Tobacco: Never Smokeless Tobacco: Never Alcohol Use Standard Drinks/Week Comments No 0 (1 standard drink = 0.6 oz pur e alcohol) PHQ-2 Answer Date Recorded PHQ Adult Total Score 0 03/21/2024 Hunger Vital Sign Answer Date Recorded Within the past 12 months, y ou worried that your food would run out before you got the money to buy more. Never true 03/14/20 24 Within the past 12 months, t he food you bought just didn't last and you didn't have money to get more. Never true 03/14/2024 Childcare Answer Date Recorded Do you feel overwhelmed with taking care of a child, family member or friend? No 03/14/2024 Does your family need help f inding childcare? (Household - for ages 0-17 years) Not on file 03/14/2024 Clothing Answer Date Recorded Have you been unable to get clothing when it was really needed? No 03/14/2024 Is your family able to get c lothes or diapers when needed? (Household - for ages 0-17 years) Not on file 03/14/2024 Personal Safety Answer Date Recorded Do you feel unsafe or have concerns for your saf ety? No 03/14/2024 Do you have concerns for you r family's safety? (Household - for ages 0-17 years) Not on file 03/14/2024 Utilities Answer Date Recorded Do you have trouble paying y our heating, water, or electric bill? No 03/14/2024 Is your family able to pay t he heat, water, or electric bill? (Household - for ages 0-17 years) Not on file 03/14/2024 Does your family have access to good internet? (Household - for ages 0-17 years) Not on file 03/14/2024 Employment Status Answer Date Recorded Are you unemployed or without regular income? No 03/14/2024 Does the household have a re gular source of income? (Household - for ages 0-17 years) Not on file 03/14/2024 Social Connections Answer Date Recorded How often do you feel lonely or isolated from th ose around you? Never 03/14/2024 Financial Resource Strain Answer Date R ecorded Do you have any trouble payi ng for your medications, or do you think you might in the future? No 03/14/2024 Does your family have troubl e paying for medicine? (Household - for ages 0-17 years) Not on file 03/14/2024 Transportation Needs Answer Date Record ed READ ONLY Do you have troubl e getting a ride to medical visits or work? Never True 03/14/2024 Does your family have a hard time getting a ride to doctors visits? (Household - for ages 0-17 years) Not on file 03/14/2024 Has lack of transportation k ept you from medical appointments, meetings, work, or from getting things needed for daily living? Check all that apply. (Adult - for ages 18 years and over) Not on file 03/14/2024 Do you (or your family) have trouble finding or paying for a ride (transportation)? (Household - for ages 0-17 years) Not on file 03/14/2024 Housing Stability Answer Date Recorded Do you currently live in a s helter or have no steady place to sleep at night? No 03/14/2024 READ ONLY Do you think you a re at risk of becoming homeless? No 03/14/2024 Does your family worry about paying for your home or becoming homeless? (Household - for ages 0-17 years) Not on file 0 03/14/2024 Are you homeless or worried that you might be in the future? (Adult - for ages 18 years and over) Not on file Are you (or your family) filemon eless or worried that you might be in the future? (Household - for ages 0-17 years) Not on file Food Insecurity Answer Date Recorded Do you need food for this week? No 03/14/2024 Are you able to get enough f ood for your family? (Household - for ages 0-17 years) Not on file 03/14/2024 Does your family need food t his week? (Household - for ages 0-17 years) Not on file 03/14/2024 Do you always have enough fo od for your family? (Household - for ages 0-17 years) Not on file 03/14/2024 Sex and Gender Information Value Date Recorded Sex Assigned at Female 03/14/2024 10:44 AM EDT Gender Identity Female 03/14/2024 10:44 AM EDT Sexual Orientation Straight 03/14/2024 10 :44 AM EDT Job Start Date Occupation Industry Not on file Not on file Not on file documented as of this encounter Miscellaneous Notes * Telephone Encounter - Eugene Hurt DO - 03/10/2024 10:24 AM EDT Please call to schedule visit with Rancho or Cynthia to discuss DEXA scan documented in this encounter Plan of Treatment Scheduled Procedures Name Priority Associated Diagnoses Date/Ti me COLONOSCOPY FLEXIBLE PROXIMA L DIAGNOSTIC Recall Encounter for screening colonoscopy Health Maintenance Due Date Last Done Comments Cologuard 2002 Fecal Occult Blood Test 2002 Sigmoidoscopy 2002 Zoster Vaccines (1 of 2) 2007 Pneumococcal Vaccine: 65+ Years (1 of 1 - PCV) 2022 COVID-19 Vaccine ( - season) 2023 Adult Wellness Visit 2023 Influenza Vaccine (FLU shot) (#1) 2024 08/28/2015, 11/17/2000, 11/14/1999 Mammogram 02/27/2025 02/28/2024, 01/31, 05/28/2021, Additional history exists Depression Screening 03/21/2025 03/21/2024 Lipid Panel 03/25/2026 03/25/2021, 03/01, 06/02/2016, Additional history exists Diabetes Screening 03/21/2027 03/21/2024, 0 03/16/2019, 06/02/2016, Additional history exists Colonoscopy 04/27/2029 04/27/2019, 04/02, 04/06/2008 Colorectal Cancer Screening 04/27/2029 DTaP,Tdap,and Td Vaccines (3 - Td or Tdap) 05/09/2030 05/09/2020, 03/27/2010, 04/30/1997, Additional history exists DXA Scan 03/07/2034 03/07/2024, 03/07/2024 Pap Smear Discontinued 03/08/2019, 0812/2015, 02/06/2013, Additional history exists HPV (Gardasil) Vaccine Aged Out No lo nger eligible based on patient's age to complete this topic Hepatitis B Vaccine Aged Out No longe r eligible based on patient's age to complete this topic MENINGOCOCCAL (MENACTRA/MENVEO) Aged Out No longer eligible based on patient's age to complete this topic documented as of this encounter Medical Devices Implanted Type Area Coat Tailor Device Identifier Shelf Expiration Date Model / Serial / Lot Screw Bone 3.5x12mm Hand Titanium Nonsterile Non Saskia Wrst - [id number] Implanted:Qty: 1 on 11/29/2023 by Robin Vargas MD at OR [facility] Left: Ankle DAMIAN : ORTHOPAEDICS [id number] / / Screw Bone 2.7x12mm Hand Titanium Nonsterile Non Saskia Wrst - [id number] Implanted:Qty: 1 on 11/29/2023 by Robin Vargas MD at OR [facility] Left: Ankle DAMIAN : ORTHOPA[employer]ICS [id number] / / Plate Bone [id number] 5hole Profile Titanium Nonsterile - [id number] Implanted:Qty: 1 on 11/29/2023 by Robin Vargas MD at OR [facility] Left: Ankle DAMIAN : TRAUMA [id number] / / Screw Bone 3.5x12mm Ankle Titanium Nonsterile Latexfree - [id number] Implanted:Qty: 5 on 11/29/2023 by Robin Vargas MD at OR [facility] Left: Ankle DAMIAN : ORTHOPA[employer]ICS [id number] / / Screw Bone 3.5x10mm Ankle Titanium Nonsterile Latexfree - [id number] Implanted:Qty: 1 on 11/29/2023 by Robin Vargas MD at OR [facility] Left: Ankle DAMIAN : ORTHOPAEDICS [id number] / / documented as of this encounter Advance Directives * Full Code (Latest Code Status on File) Date Activated Date Inactivated Comments 11/29/2023 10:54 AM 11/29/2023 4:17 PM This order reflects the patients wishes and were consensually agreed upon. Question Answer Comments Discussion of Advance Direct ant occurred with: Not Discussed due to patient's condition * Full Code Date Activated Date Inactivated Comments 11/29/2023 8:01 AM 11/29/2023 10:54 AM This order reflects the patients wishes and were consensually agreed upon. Question Answer Comments Discussion of Advance Direct ant occurred with: Not Discussed due to patient's condition Care Teams Molder Floor Relationship Specialty Start Date End Date [address] [place] [address] PCP - General Physician Bumboater 05/13/24 documented as of this encounter
--- OUTSIDE RECORDS SUMMARY | 2024-08-03 11:06 | External Medical Summary ---
Author Name Unknown Address Unknown Organization [id number]:LABORATORY [facility] [place] - [address] [place] [address] Laboratory Report Ordering Provider Test Date Status 03/21/2024 16:04:17 Final Deficient: <20 ng/mL
Ins ufficient: 20-29 ng/mL
Recommended/Optimum:30-50 ng/mL

Vitamin D intoxication is rare. If suspicious of Vitamin D toxicity, evaluation of serum Calcium and PTH is recommended. Observation Date Value Abnormality Reference (Units ) Status 25-OH Vitamin D total 03/21/2024 16:04:17 115 >19 (ng/mL) Final Performing Location LABORATORY [facility] - [address] [place] [address]
--- OUTSIDE RECORDS SUMMARY | 2024-08-03 11:06 | External Medical Summary ---
Author Name Unknown Address Unknown Organization [id number]:LABORATORY [facility] [place] - [address] [place] [address] Laboratory Report Ordering Provider Test Date Status 03/21/2024 16:04:17 Final Observation Date Value Abnormality Reference (Units ) Status Parathyrin.intact [Mass/volume] in Serum or Plasma 03/21/2024 16:04:17 28 15-65 (pg/mL) Final Performing Location LABORATORY [facility] – [place] - [address] [place] [address]
--- OUTSIDE RECORDS SUMMARY | 2024-08-03 11:06 | External Medical Summary ---
Author Name Unknown Address Unknown Organization [id number]:LABORATORY [facility] [place] - [facility] [address] [place] [address] Laboratory Report Ordering Provider Test Date Status 03/21/2024 16:04:17 Final Observation Date Value Abnormality Reference (Units ) Status BUN 03/21/2024 16:04:17 14 6-20 (mg/dL) Final Creatinine 03/21/2024 16:04:17 0.8 0.5-1.0 (mg/dL) Final Glomerular filtration rate/1.73 sq M.predicted [Volume Rate/Area] in Serum, Plasma or Blood by Creatinine-based formula (CKD-EPI) 03/21/2024 16:04:17 84 >=60 (mL/min) Final eGFR is calculated based on the CKD-EPI 2020 equation Sodium 03/21/2024 16:04:17 141 135-146 (m mol/L) Final Potassium 03/21/2024 16:04:17 4.2 3.5-5.1 (m mol/L) Final Cl 03/21/2024 16:04:17 106 98-107 (mm ol/L) Final CO2 03/21/2024 16:04:17 26 22-32 (mmo l/L) Final Anion gap 03/21/2024 16:04:17 9 7-15 (mmol /L) Final Glucose 03/21/2024 16:04:17 107 70-120 (mg /dL) Final Calcium 03/21/2024 16:04:17 9.6 8.4-10.2 ( mg/dL) Final Performing Location LABORATORY [facility] [place] - [address] [place] [address]
--- OUTSIDE RECORDS SUMMARY | 2024-08-03 11:06 | External Medical Summary | Summary of Care ---
Author Name Unknown Organization [facility] Address [address] [place] [address] Phone [phone] Care Team Providers Care Cyber Transport Systems Specialist Name Role Phone Morro MORENO MD, [place] Shrestha Primary Care Provider [phone] Reason for Visit * Reason Comments Outpatient Testing Encounter Details Date Type Department Care Team (Late st Contact Info) Description 03/21/2024 4:00 PM EDT Laboratory Laboratory [facility] [address] [place] [phone] [facility] [address] [facility] [place] [address] Age-related osteoporosis without current pathological fracture; Other osteoporosis without current pathological fracture Allergies No known active allergiesdocumented as of this encounter (statuses as of 03/21/2024) Medications Medication Sig Dispensed Refills Start Date End Date Status DAILY MULTIVITAMIN PO TABS 0 05/28/2009 Active OMEGA-3 FISH OIL 1000 MG PO CAPS 1 cap daily Active VITAMIN C 500 MG PO TABS 1 tablet daily Active ICaps AREDS Formula Oral Tablet Take by mouth. Active D-Mannose 500 MG Oral Capsule Take by mouth. Active Probiotic Daily Oral Capsule Take 1 Capsule by mouth in the morning. Active Calcium 250 MG Oral Capsule Take by mouth. Active Alendronate Sodium 70 MG Oral Tablet (Fosamax)Indications:A ge-related osteoporosis without current pathological fracture Take 1 Tablet by mouth once a week. with 8 oz. water 30 minutes before first meal of the day. Remain upright for 30 min after taking tablet. 5 Tablet 11 03/21/2024 Active documented as of this encounter (statuses as of 03/21/2024) Active Problems Problem Noted Date Diagnosed Date Closed fracture of shaft of left fibula 11/24/19 Dyslipidemia, goal LDL below 130 02/06/2013 FAMILY HISTORY OF HEART DISEASE (ISCHEMIC) 02/21 Overview: father and brother documented as of this encounter (statuses as of 03/21/2024) Immunizations Name Administration Dates Next Due Diptheria/Tetanus [...] Care Team (Late st Contact Info) Description 03/23/2024 7:30 AM EDT Telemedicine Orthopaedics [facility] [address] [place] [address] Robin Vargas MD [address] [place] [phone] Pending Results Name Type Priority Associated Diagnoses Date /Time BASIC METABOLIC PANEL Lab Routine Age-related osteoporosis without current pathological fracture 03/21/2024 4:04 PM EDT 25-HYDROXY VITAMIN D Lab Routine Age-related osteoporosis without current pathological fracture 03/21/2024 4:04 PM EDT TSH WITH FREE T4 IF INDICATED Lab Routine Age-related osteoporosis without current pathological fracture Other osteoporosis without current pathological fracture 03/21/2024 4:04 PM EDT PTH Lab Routine Age-related osteoporosis without current pathological fracture 03/21/2024 4:04 PM EDT Scheduled Procedures Name Priority Associated Diagnoses Date/Ti me COLONOSCOPY FLEXIBLE PROXIMA L DIAGNOSTIC Recall Encounter for screening colonoscopy Health Maintenance Due Date Last Done Comments Cologuard 2002 Fecal Occult Blood Test 2002 Sigmoidoscopy 2002 Zoster Vaccines (1 of 2) 2007 Diabetes Screening 03/16/2022 03/16/2019, 0 06/02/2016, 02/09/2013, Additional history exists Pneumococcal Vaccine: 65+ Years (1 of 1 - PCV) 2022 COVID-19 Vaccine (1 - season) 2023 Influenza Vaccine (FLU shot) (Season Ended) 2024 08/28/2015, 11/17/2000, 11/14/1999 Mammogram 02/27/2025 02/28/2024, 05/02, 05/23/2020, Additional history exists Depression Screening 03/21/2025 03/21/2024 Lipid Panel 03/25/2026 03/25/2021, 03/01, 06/02/2016, Additional history exists Colonoscopy 04/27/2029 04/27/2019, 04/02, 04/06/2008 Colorectal Cancer Screening 04/27/2029 DTaP,Tdap,and Td Vaccines (3 - Td or Tdap) 05/09/2030 05/09/2020, 03/27/2010, 04/30/1997, Additional history exists DXA Scan 03/07/2034 03/07/2024 Pap Smear Discontinued 03/08/2019, 12/2015, 02/06/2013, Additional history exists GARDASIL-HPV IMMUNIZATION SERIES Aged Out No longer eligible based on patient's age to complete this topic Hepatitis B Aged Out No longer eligi ble based on patient's age to complete this topic MENINGOCOCCAL (MENACTRA/MENVEO) Aged Out No longer eligible based on patient's age to complete this topic documented as of this encounter Medical Devices Implanted Type Area Slot Router Device Identifier Shelf Expiration Date Model / Serial / Lot Screw Bone 3.5x12mm Hand Titanium Nonsterile Non Saskia Wrst - [id number] Implanted:Qty: 1 on 11/29/2023 by Robin Vargas MD at OR [facility] Left: Ankle DAMIAN : ORTHOPAEDICS [id number] / / Screw Bone 2.7x12mm Hand Titanium Nonsterile Non Saskia Wrst - [id number] Implanted:Qty: 1 on 11/29/2023 by Robin Vargas MD at OR [facility] Left: Ankle DAMIAN : ORTHOPAEDICS [id number] / / Plate Bone [id number] 5hole Profile Titanium Nonsterile - [id number] Implanted:Qty: 1 on 11/29/2023 by Robin Vargas MD at OR [facility] Left: Ankle DAMIAN : TRAUMA [id number] / / Screw Bone 3.5x12mm Ankle Titanium Nonsterile Latexfree - [id number] Implanted:Qty: 5 on 11/29/2023 by Robin Vargas MD at OR [facility] Left: Ankle DAMIAN : ORTHOPAEDICS [id number] / / Screw Bone 3.5x10mm Ankle Titanium Nonsterile Latexfree - [id number] Implanted:Qty: 1 on 11/29/2023 by Robin Vargas MD at OR [facility] Left: Ankle DAMIAN : ORTHOPAEDICS [id number] / / documented as of this encounter Visit Diagnoses Diagnosis Age-related osteoporosis without current pathological fracture Senile osteoporosis Other osteoporosis without current pathological fracture documented in this encounter Advance Directives * Full Code [...] Discussed due to patient's condition Care Teams Cyber Transport Systems Specialist Relationship Specialty Start Date End Date Rancho Hooker III, MD [address] [facility] [place] [address] PCP - General Family Medicine 04/27/19 documented as of this encounter
--- OUTSIDE RECORDS SUMMARY | 2024-08-03 11:06 | External Medical Summary ---
Author Name Unknown Address Unknown Organization K01:LABORATORY [facility] [place] - [address] [place] [address] Laboratory Report Ordering Provider Test Date Status 03/21/2024 16:04:17 Final Observation Date Value Abnormality Reference (Units ) Status TSH 03/21/2024 16:04:17 1.96 0.27-4.20 (uIU/mL) Final Performing Location LABORATORY C - [address] [place] [address]
--- OUTSIDE RECORDS SUMMARY | 2024-08-03 11:06 | External Medical Summary | Summary of Care ---
Author Name Unknown Organization [facility] Address [address] [place] [address] Phone [phone] Care Team Providers Care Autistic Teacher Name Role Phone Morro MORENO MD, Rancho Shrestha Primary Care Provider [phone] Reason for Visit * Reason Comments Follow Up Patient would like t o discuss bone density test results Encounter Details Date Type Department Care Team (Late st Contact Info) Description 03/21/2024 3:20 PM EDT Office Visit Family Practice [facility] [address] [facility] [place] [address] Cynthia Rinaldi PA-C [address] [facility] [place] [address] Age-related osteoporosis without current pathological fracture*; Dyslipidemia, goal LDL below 130; Other osteoporosis without current pathological fracture Allergies [...] on file documented as of this encounter Last Filed Vital Signs Vital Sign Reading Time Taken Comments Blood Pressure 116/62 03/21/2024 3:12 PM EDT Pulse 78 03/21/2024 3:12 PM EDT Temperature 36.7 C (98 F) 03/21/2024 3:12 PM EDT Respiratory Rate - - Oxygen Saturation 98% 03/21/2024 3:12 PM EDT Inhaled Oxygen Concentration - - Weight 61.3 kg (135 lb 1.9 oz) 03/21/2024 3:12 P M EDT Height 149.9 cm (4' 11.02") 03/21/2024 3:12 PM E DT Body Mass Index 27.28 03/21/2024 3:12 PM EDT documented in this encounter Progress Notes * Cynthia Rinaldi PA-C - 03/21/2024 3:45 PM EDT Images from the original note were not included. History of Present Illness Zeynep Tanner is a 68 year old female that presents for Follow Up (Patient would like to discuss bone density test results) Patient is a 68-year-old female who presents today to discuss recent DEXA scan. Has had a history of fracture left ankle but there has also been family histories of hip fractures. She does take some supplemental calcium. And vitamin-D. Physical Exam Vitals: 03/21/24 1512 Temp: 36.7 C (98 F) Pulse: 78 SpO2: 98% BP: 116/62 BMI: 27.28 BP Readings from Last 3 Encounters: 03/21/24 116/62 11/29/23 110/61 11/17/23 112/70 Wt Readings from Last 3 Encounters: 03/21/24 61.3 kg (135 lb 1.9 oz) 11/29/23 61.2 kg (135 lb) 09/09/22 60.8 kg (134 lb) General: alert, healthy, no distress, well nourished, well developed, comfortable, and cooperative Head: Normocephalic, No masses, lesions, tenderness or abnormalities Eye Exam: PERRLA, extraocular movements intact, conjunctiva are pink and non- injected, sclera clear Lungs: chest symmetric with normal AP diameter, no chest deformities noted, normal respiratory rateand rhythm, diaphragmatic excursion normal Extremities: less than 2 second capillary refill, no joint deformities, effusion, or inflammation, no edema, no skin discoloration, no clubbing, no cyanosis I have reviewed the following results: Imaging results in the last 6 months DEXA SCAN/BONE MINERAL AXIAL Result Date: 03/08/2024 S: Fracture risk is based on current National Osteoporosis Foundation (www.nof.org) Clinicians Guide and [place] Association of Clinical Endocrinology (AACE) Guidelines (www.aace.com) and the application of current WHO FRAX tool (https://www.alisha.ac.uk/FRAX/) as well as the 2017 [place] [employer] Glucocorticoid Induced Osteoporosis (GIOP) Guidelines (rheumatology.org/Practice-Quality/Clinical-Support/Umxhrjxe-Qstbxfhr-Hhdbm lines) using Bone mineral density derived T-scoresand clinical risk factors obtained from the patient questionnaire. 1. The fracture risk is HIGH (based on T-score at or below -2.5) 2. The quality of the examination is GOOD. 3. No previous study forcomparison. DEXA machine was recently upgraded so comparison study can not be made The low Z-score reflects a low bone mineral density compared to age, and gender-matched controls. SUGGESTIONS: Information concerning the evaluation and treatment of osteoporosis canbe found at the National Osteoporosis Foundation website (www.nof.org) and [place] [employer] Clinical Endocrinology (AACE-www.aace.com). Osteoporosis prevention and treatment begins by modifying risk factors (such as smoking cessation and avoiding alcohol excess) and by participating in weight-bearing activities and exercise. Issues related to fall prevention and home safety should be addressed. Current NOF guidelines suggest 1200 to 1500 mg of calcium from diet and or supplemental sources. It is generally felt best to get calcium from ones diet. Calcium carbonate and calcium citrateare common calcium supplement choices in most local pharmacies. If the patient is taking a proton pump inhibitor, then calcium citrate should be the preferred supplement, if that is necessary. NOF guidelines for vitamin D are 800 to 1000 units of vitamin D3 daily. However, this may best be guided by measurement of 25-OH vitamin-D level, aiming for a level between 30 to 50 units (ng/ml). Additional information can be found at the FRAX website (https://www.alisha.ac.uk/FRAX/), and the [place] [employer]umat[employer] website (https://www.rheumatology.org/Practice-Quality/Clinical-Support/Clinical-Pr actice-Guidelines). 1. Treatment with a bisphosphonate (such as Fosamax/Alendronate, Actonel/Risedronate, or Boniva/Ibandronate) should be considered. If the patient is unable to use an oral bisphosphonate, another agent such as IV bisphosphonates (Boniva/Ibandronate or Reclast/Zoledronic Acid ), Prolia/Denosumab Forteo/Teriparatide, Tymlos/Abaloparatide, Evenity/Romosozumab, or a selective estrogen receptor modulator (Evista/Raloxifene) should be considered. Secondary causes of low bone density should be considered. A 25-OH Vitamin D, serum calcium, and creatinine should be obtained.Other studies can be considered which would include a PTH, IEP, TSH, or Testosterone (in men). (Forusers of [facility], there is an osteoporosis Smart Set #1146). If there are questions about how to best manage this high risk patient, consideration can be given to referral to [facility] ([facility]). To place a consult, type in [facility] under orders in [facility]. Alternatively, an "ASK-a-DOC" question can be sent to any Ski Patroller or Survey Rodman in the [employer] - You can request a specific physician to answer your question or you can use the physician responsible for ASK-a-DOC that day. 2. Given the patient's Z-score (comparison with age matched controls) which is below 1.0, one should consider secondary causes of low bone mineral density. A 25-OH Vitamin D, serum calcium, and creatinine should be obtained. Other studies can be considered which would include a PTH, IEP,TSH, or Testosterone (in men). For [facility] Providers, use the OSTEOPOROSIS Smart Set [1146] 3. A repeat study should be considered in 2 years, after therapy is started MAUREEN MURPHY M.D. ISCD Certified Clinical Fibreglass Lay Up Worker Department of Rheumatology Linebacker [facility] XR ANKLE 3 OR MORE VIEWS Result Date: 01/31/2024 IMPRESSION Healing distal fibular fracture XR ANKLE 3 OR MORE VIEWS Result Date: 01/14/2024 IMPRESSION Stable postoperative appearance of the left ankle. XR ANKLE 3 OR MORE VIEWS Result Date: 12/31/2023 IMPRESSION Healing lateral malleolus fracture status post ORIF in stable alignment. XR ANKLE 3 OR MORE VIEWS Result Date: 12/20/2023 IMPRESSION: Internally stabilized fibular fracture THIS DOCUMENT HAS BEEN ELECTRONICALLY SIGNED BY NOMI ZUNIGA MD XR ANKLE 3 OR MORE VIEWS Result Date: 12/09/2023 IMPRESSION: Intact ORIF. No evidence of acute injury or hardware failure. THIS DOCUMENT HAS BEEN ELECTRONICALLY SIGNED BY MIMA IBRAHIM MD XR ANKLE 3 OR MORE VIEWS Result Date: 11/30/2023 IMPRESSION Status post splinting, which obscures fine detail. Interval ORIF distal fibula, no hardware complication. XR ANKLE 3 OR MORE VIEWS Result Date: 11/25/2023 IMPRESSION SER injury with Smyth B fracture distal left fibula, stable to mildly progressed. XR ANKLE 2 VIEWS Result Date: 11/19/2023 IMPRESSION: Generalized osteopenia with persistent slightly displaced fracture near the left distalfibula. Lateral soft tissue swelling. THIS DOCUMENT HAS BEEN ELECTRONICALLY SIGNED BY CALIN ANGELA MD XR ANKLE 3 OR MORE VIEWS Result Date: 11/17/2023 IMPRESSION Distal fibular fracture, as above. XR KNEE 1-2 VIEWS Result Date: 11/17/2023 IMPRESSION No radiographically apparent fracture. Assessment and Plan Age-related osteoporosis without current pathological fracture (Primary) - BASIC METABOLIC PANEL; Future; Expected date: 03/21/2024 - 25-HYDROXY VITAMIN D; Future; Expected date: 03/21/2024 - TSH WITH FREE T4 IF INDICATED; Future; Expected date: 03/21/2024 - PTH; Future; Expected date: 03/21/2024 - Alendronate Sodium 70 MG Oral Tablet (Fosamax); Take 1 Tablet by mouth once a week. with 8 oz. water 30 minutes before first meal of the day. Remain upright for 30 min after taking tablet. Dyslipidemia, goal LDL below 130 Other osteoporosis without current pathological fracture - TSH WITH FREE T4 IF INDICATED; Future; Expected date: 03/21/2024 Wrap-Up Time: I spent a total of 20-29 minutes (exact time 27 mins) on the date of service in preparation, delivery, and documentation of the care provided to Zeynep Tanner excluding any time spent in the performance of separately billed services. documented in this encounter Nursing Notes * Aristides Karimi MED ASSIST - 03/21/2024 3:11 PM EDT Chief Complaint Patient presents with Follow Up Patient would like to discuss bone density test results Patient has been verbally educated on the need or importance of Immunizations: Shingrix,and Pneumococcal and has declined topic(s). documented in this encounter Plan of Treatment Upcoming Encounters Date Type Department Care Team (Late st Contact Info) Description 03/23/2024 7:30 AM EDT Telemedicine [facility]opaed[facility] [address] [facility] [place] [address] Robin Vargas MD [address] [place] [phone] Scheduled Orders Name Type Priority Associated Diagnoses Orde r Schedule BASIC METABOLIC PANEL Lab Routine Age-related osteoporosis without current pathological fracture Expected: 03/21/2024 (Approximate), Expires: 03/21/2025 25-HYDROXY VITAMIN D Lab Routine Age-related osteoporosis without current pathological fracture Expected: 03/21/2024 (Approximate), Expires: 03/21/2025 TSH WITH FREE T4 IF INDICATED Lab Routine Age-related osteoporosis without current pathological fracture Other osteoporosis without current pathological fracture Expected: 03/21/2024 (Approximate), Expires: 03/21/2025 PTH Lab Routine Age-related osteoporosis without current pathological fracture Expected: 03/21/2024 (Approximate), Expires: 03/21/2025 Scheduled Procedures Name Priority Associated Diagnoses Date/Ti [...] - PCV) 2022 COVID-19 Vaccine ( - 2022-24 season) 2023 Influenza Vaccine (FLU shot) (Season [...] Scan 03/07/2034 03/07/2024 Pap Smear Discontinued 03/08/2019, 08/12/2015, 02/06/2013, Additional history exists GARDASIL-HPV IMMUNIZATION SERIES Aged Out No longer eligible based on patient's age to complete this topic Hepatitis B Aged Out No longer eligi ble based on patient's age to complete this topic MENINGOCOCCAL (MENACTRA/MENVEO) Aged Out No longer eligible based on patient's age to complete this topic documented as of this encounter Medical Devices Implanted Type Area Enameler Device Identifier Shelf Expiration Date Model / Serial / Lot Screw Bone 3.5x12mm Hand Titanium Nonsterile Non Saskia Wrst - [id number] Implanted:Qty: 1 on 11/29/2023 by Robin Vargas MD at OR [facility] Left: Ankle DAMIAN : ORTHOPAEDICS [id number] / / Screw Bone 2.7x12mm Hand Titanium Nonsterile Non Saskia Wrst - [id number] Implanted:Qty: 1 on 11/29/2023 by Robin Vargas MD at OR [facility] Left: Ankle DAMIAN : ORTHOPAEDICS [id number] / / Plate Bone [id number] 5hole Profile Titanium Nonsterile - [id number] Implanted:Qty: 1 on 11/29/2023 by Robin Vargas MD at OR [facility] Left: Ankle DAMIAN : TRAUMA 40- / / Screw Bone 3.5x12mm Ankle Titanium Nonsterile Latexfree - [id number] Implanted:Qty: 5 on 11/29/2023 by Robin Vargas MD at OR [facility] Left: Ankle DAMIAN : ORTHOPAEDICS [id number] / / Screw Bone 3.5x10mm Ankle Titanium Nonsterile Latexfree - [id number] Implanted:Qty: 1 on 11/29/2023 by Robin Vargas MD at OR [facility] Left: Ankle DAMIAN : ORTHOPAEDICS [id number] / / documented as of this encounter Visit Diagnoses Diagnosis Age-related osteoporosis without current pathological fracture- Primary Senile osteoporosis Dyslipidemia, goal LDL below 130 Other and unspecified hyperlipidemia Other osteoporosis without current pathological fracture documented [...] Discussed due to patient's condition Care Teams Autistic Teacher Relationship Specialty Start Date End Date Rancho Hooker III, MD [address] [facility] [place] [address] PCP - General Family Medicine 04/27/19 documented as of this encounter
--- OUTSIDE RECORDS SUMMARY | 2024-08-03 11:06 | External Medical Summary | Summary of Care ---
Author Name Unknown Organization [facility] Address [address] [place] [address] Phone [phone] Care Team Providers Care Vmware Systems Administrator Name Role Phone Morro MORENO MD, [place] Shrestha Primary Care Provider [phone] Reason for Visit * Reason Comments Fracture ORIF left fibula 11/02 07/25 Encounter Details Date Type Department Care Team (Latest Contact Info) Description 02/24/2024 9:30 AM EDT Office Visit Orthopaedics [facility] [address] [place] [address] Robin Vargas MD [address] [place] [phone] Postoperative follow-up* Allergies No known active allergiesdocumented as of this encounter (statuses as of 02/24/2024) Medications Medication Sig Dispensed Refills Start Date End Date Status DAILY MULTIVITAMIN PO TABS 0 05/28/2009 Active OMEGA-3 FISH OIL 1000 MG PO CAPS 1 cap daily 0 Active VITAMIN C 500 MG PO TABS 1 tablet daily 0 Active documented as of this encounter (statuses as of 02/24/2024) Active Problems Problem Noted Date Diagnosed Date Closed fracture of shaft of left fibula 11/24/19 Dyslipidemia, goal LDL below 130 02/06/2013 FAMILY HISTORY OF HEART DISEASE (ISCHEMIC) 02/21 Overview: father and brother documented as of this encounter (statuses as of 02/24/2024) Immunizations Name Administration Dates Next Due Diptheria/Tetanus [...] the money to buy more. Never true 03/11/20 21 Within the past 12 months, t he food you bought just didn't last and you didn't have money to get more. Never true 03/11/2021 Sex and Gender Information Value Date Recorded Sex Assigned at Not on file Gender Identity Not on file Sexual Orientation Not on file Job Start Date Occupation Industry Not on file Not on file Not on file documented as of this encounter Progress Notes * Robin Vargas MD - 02/24/2024 9:42 AM EDT ORTHOPAEDIC SURGERY - Post-Op Clinic Note SUBJECTIVE: Zeynep Tanner is a 68 year old female. Chief Complaint Patient presents with Fracture ORIF left fibula 11/29/23 ASSESSMENT: Z09 Postoperative follow-up (primary encounter diagnosis) 68 year old female 3 month(s) s/p left ankle fracture ORIF Ankle stiffness PLAN: We discussed diagnosis and treatment options with the patient today. At this time we recommend thatthe patient continue with the physical therapy and the weight-bearing as tolerated. We discussed her lower leg swelling. We feel she would benefit from continued compression stocking and elevation. She will continue to work on her ankle range of motion with a stretching program. We discussed the patient's returned to work. Feel she may return to work on March 06 with light dutyrestrictions of no lifting greater than 15 lb and 15 minute rest intervals every hour. Follow Up: Return in about 4 weeks (around 03/23/2024) for Telephone Visit. | For: Telephone Visit HPI: Zeynep Tanner presents today 3 month(s) s/p Left ankle fracture ORIF doing well. Patient statesthat she is ambulating and weaning the walker. She does notice swelling in the left ankle at the end of the day. She continues to do the physical therapy. She does have some questions about returned to work in when to return.. Parathesia negative: Calf pain negative: Fevers or chills negative. Ambulating with crutches negative Review of patient's allergies indicates: No Known Allergies Current Outpatient Medications Medication Sig Dispense Refill DAILY MULTIVITAMIN PO TABS 0 OMEGA-3 FISH OIL 1000 MG PO CAPS 1 cap daily VITAMIN C 500 MG PO TABS 1 tablet daily No current facility-administered medications for this visit. OBJECTIVE: Diagnostic studies: X-rays of the left ankle today. The fibular plate is intact. There is no evidence of hardware migration. The mortise is intact. Vital Signs: LMP 01/22/2008 Physical Exam: Evaluation of the left ankle. No evidence significant swelling. She is nontender palpation over thedistal fibula. The incisions well healed. Range of motion of the ankle is dorsiflexion to neutral plantar flexion to 20. She does have some pain with plantar flexion. Patient's gait is antalgic. Robin Vargas MD Orthopaedics [address] [address] Orthopedic Sports Medicine Surgery 02/24/2024 9:42 AM This chart was completed in part utilizing [employer] Speech Voice Recognition Software. Grammatical errors, random word insertions, pronoun errors, and incomplete sentences are an occasional consequence of this system due to software limitations, ambient noise, and hardware issues. Any formal questions or concerns about the content, text, or information contained within the body of this dictation should be directly addressed to the provider for clarification. documented in this encounter Nursing Notes * Nadia Padilla LPN - 02/24/2024 9:18 AM EDT 4 weeks follow up ORIF left Fibula 11/29/23. slipped on ice and fell 11/16/23 Nadia Jacobson LPN documented in this encounter Plan of Treatment Upcoming Encounters Date Type Department Care Team (Late st Contact Info) Description 02/28/2024 11:30 AM EDT Imaging Radiology [address] [employer] [address] [place] [address] 03/07/2024 11:00 AM EDT [address] Rad[address] [address] 03/23/2024 7:30 AM EDT Telemedicine Orthopaedics [facility] [address] [place] [address] Robin Vargas MD [address] [place] [phone] Scheduled Procedures Name Priority Associated Diagnoses Date/Ti me COLONOSCOPY FLEXIBLE PROXIMA L DIAGNOSTIC Recall Encounter for screening colonoscopy Health Maintenance Due Date Last Done Comments Cologuard 2002 Fecal Occult Blood Test 2002 Sigmoidoscopy 2002 Zoster Vaccines (1 of 2) 2007 Depression Screening 05/09/2021 05/09/2020 Diabetes Screening 03/16/2022 03/16/2019, 0 06/02/2016, 02/09/2013, Additional history exists Mammogram 05/28/2022 05/28/2021, 05/02, 04/03/2019, Additional history exists DXA Scan 2022 Pneumococcal Vaccine: 65+ Years (1 of 1 - PCV) 2022 COVID-19 Vaccine (1 - 2022-24 season) 2023 Influenza Vaccine (FLU shot) (Season Ended) 2024 08/28/2015, 11/17/2000, 11/14/1999 Lipid Panel 03/25/2026 03/25/2021, 03/01, 06/02/2016, Additional history exists Colonoscopy 04/27/2029 04/27/2019, 04/02, 04/06/2008 Colorectal Cancer Screening 04/27/2029 DTaP,Tdap,and Td Vaccines (3 - Td or Tdap) 05/09/2030 05/09/2020, 03/27/2010, 04/30/1997, Additional history exists Pap Smear Discontinued 03/08/2019, 12/2015, 02/06/2013, Additional [...] this encounter Medical Devices Implanted Type Area Child Development Director Device Identifier Shelf Expiration Date Model / Serial / Lot Screw Bone 3.5x12mm Hand Titanium Nonsterile Non Saskia Wrst - [id number] Implanted:Qty: 1 on 11/29/2023 by Robin Vargas MD at OR [facility] Left: Ankle DAMIAN : ORTHOPAEDICS [id number] / / Screw Bone 2.7x12mm Hand Titanium Nonsterile Non Saskia Wrst - [id number] Implanted:Qty: 1 on 11/29/2023 by Robin Vargas MD at OR [facility] Left: Ankle DAMIAN : ORTHOPAEDICS [id number] / / Plate Bone [id number] 5hole Profile Titanium Nonsterile - [id number] Implanted:Qty: 1 on 11/29/2023 by Robin Vargas MD at OR [facility] Left: Ankle DAMIAN : TRAUMA 40 / / Screw Bone 3.5x12mm Ankle Titanium Nonsterile Latexfree - [id number] Implanted:Qty: 5 on 11/29/2023 by Robin Vargas MD at OR [facility] Left: Ankle DAMIAN : ORTHOPAEDICS [id number] / / Screw Bone 3.5x10mm Ankle Titanium Nonsterile Latexfree - [id number] Implanted:Qty: 1 on 11/29/2023 by Robin Vargas MD at OR [facility] Left: Ankle DAMIAN : ORTHOPAEDICS [id number] / / documented as of this encounter Visit Diagnoses Diagnosis Postoperative follow-up- Primary Follow-up examination, following unspecified surgery documented in this encounter Advance Directives Latest Code Status [...] Discussed due to patient's condition Care Teams Vmware Systems Administrator Relationship Specialty Start Date End Date Rancho Hooker III, MD [address] [facility] [place] [address] PCP - General Family Medicine 04/27/19 documented as of this encounter"
--- OUTSIDE RECORDS SUMMARY | 2024-08-03 11:06 | External Medical Summary | Summary of Care ---
Author Name Unknown Organization [facility] Address [address] [place] [address] Phone [phone] Care Team Providers Care Coal Tower Operator Name Role Phone Morro MORENO MD, [place] Shrestha Primary Care Provider [phone] Reason for Visit * Reason Comments Follow Up Encounter Details Date Type Department Care Team (Latest Contact Info) Description 03/23/2024 7:30 AM EDT Telemedicine Orthopaedics [facility] [address] [place] [id number] Robin Vargas MD [address] [place] [phone] Postoperative follow-up* Allergies No known active allergiesdocumented as of this encounter (statuses as of 03/23/2024) Medications Medication Sig Dispensed Refills Start Date [...] as of this encounter (statuses as of 03/23/2024) Active Problems Problem Noted Date Diagnosed Date Closed fracture of shaft of left fibula 11/24/19 Dyslipidemia, goal LDL below 130 02/06/2013 FAMILY HISTORY OF HEART DISEASE (ISCHEMIC) 02/21 Overview: father and brother documented as of this encounter (statuses as of 03/23/2024) Immunizations Name Administration Dates Next Due Diptheria/Tetanus [...] Progress Notes * Robin Vargas MD - 03/23/2024 7:30 AM EDT After connecting to the patient via telephone, the patient was identified by name and date of . Patient was then informed that this was a telephone call only visit. The patient agreed to participate. Visit Disposition: Routine follow-up Assessment Four months status post left ankle fracture ORIF Patient states that her symptoms continue to improve. She is able to ambulate without difficulty. She continues to do the physical therapy. She does notice some swelling at the end of the day but this is also much improved. After discussing the patient's symptoms we recommend that she continue with activities as tolerated. She may transition to the home exercises from therapy. We discussed her returned to work. Patient may return to work full duty without restrictions starting Wednesday03/28/2024. Total call duration was less than 5 minutes. Robin Vargas MD Orthopaedics [address] [address] Orthopedic Sports Medicine Surgery documented in this encounter Plan of Treatment [...] this encounter Medical Devices Implanted Type Area Embosser Operator Device Identifier Shelf Expiration Date Model / Serial / Lot Screw Bone 3.5x12mm Hand Titanium Nonsterile Non Saskia Wrst - [id number] Implanted:Qty: 1 on 11/29/2023 by Robin Vargas MD at OR [facility] Left: Ankle DAMIAN : ORTHOPAEDICS [id number] / / Screw Bone 2.7x12mm Hand Titanium Nonsterile Non Saskia Wrst - [id number] Implanted:Qty: 1 on 11/29/2023 by Robin Vargas MD at OR [facility] Left: Ankle DAMIAN : ORTHOPAEDICS [id number] / / Plate Bone [id number] 5hole Profile Titanium Nonsterile - [id number] Implanted:Qty: 1 on 11/29/2023 by Robin Vargas MD at OR [facility] Left: Ankle DAMIAN : TRAUMA [id number] / / Screw Bone 3.5x12mm Ankle Titanium Nonsterile Latexfree - [id number] Implanted:Qty: 5 on 11/29/2023 by Robin Vargas MD at OR [facility] Left: Ankle DAMIAN : ORTHOPAEDICS [id number] / / Screw Bone 3.5x10mm Ankle Titanium Nonsterile Latexfree - [id number] Implanted:Qty: 1 on 11/29/2023 by Robin Vargas MD at OR [facility] Left: Ankle DAMIAN : ORTHOPAEDICS [id number] / / documented as of this encounter Visit Diagnoses Diagnosis Postoperative follow-up- Primary Follow-up examination, following unspecified surgery documented in this encounter Advance Directives * [...] Discussed due to patient's condition Care Teams Coal Tower Operator Relationship Specialty Start Date End Date Rancho Hooker III, MD [address] [place] [address] PCP - General Family Medicine 04/27/19 documented as of this encounter
[2024-08-03 15:40] VITALS: BP 109/74; PULSE 67; RESP 19; TEMP 98.1; O2SAT 97
--- NOTE | 2024-08-03 16:31 | Electrocardiogram Report ---
Test Reason : Blood Pressure : */* mmHG Vent. Rate : 77 BPM Atrial Rate : 77 BPM P-R Int : 148 ms QRS Dur : 76 ms QT Int : 390 ms P-R-T Axes : 56 24 39 degrees QTcB Int : 441 ms Normal sinus rhythm Normal ECG When compared with ECG of 02-Aug-2024 23:49, (unconfirmed) No significant change was found Confirmed by Zak Rm ([id number]) on 08/03/2024 4:31:08 PM Referred By: REFERRED SELF Confirmed By: Zak Rm
--- NOTE | 2024-08-03 17:06 | Discharge Summary ---
Discharge Summary Date of Service August 03, 2024 Principal Dx & Hospital Course #1 = Principal Diagnosis (1) SVT (supraventricular tachycardia): Plan Pt is a 68yoF with no significant past medical history presenting for evaluation of palpitations. Found to be in SVT in the ED. PSVT Presented with HR in the 200s Successful conversion post adenosine administration in the ER. Pt tested positive for covid on respiratory biofire CTA chest unremarkable IV fluids Echo with noted EF of 60 to 65%, mild LVH, normal left ventricular wall motion, borderline posterior mitral valve prolapse, mild tricuspid regurgitation, mild mitral regurgitation Cardiology consulted, appreciate recs -recommending discharge with Metoprolol succinate 12.5 mg p.o. daily, aspirin 81 mg daily and rosuvastatin 20 mg daily -recommending outpt nuclear stress testing and EP followup Please ensure close cardiology followup after discharge. COVID-19 Infection Pt with recent URI symptoms Pt tested positive for covid on respiratory biofire No noted hypoxia CTA chest unremarkable Symptomatic/supportive treatment PCP follow up Troponin elevation Trop elevated at 148.2 to 349.5 to 496.9 EKG with noted SVT as above likely elevated in setting of above Cardiology consulted, appreciate further recs -recommending outpt nuclear stress testing Cardiology follow up after discharge Asymptomatic transaminitis Liver enzymes elevated on admission Currently normal on recheck liver ultrasound for progression Normal on discharge PCP followup Hypercalcemia Calcium elevated PTH normal PCP followup Hyperglycemia rule out DM Hgba1c 5.5, normal Notes For Next Care Provider Please ensure close follow-up with cardiology after discharge. Per cardiology patient will need outpatient nuclear stress testing and follow-up with electrophysiology Medication Changes From Visit Per Cardiology: Metoprolol succinate 12.5 mg p.o. daily Aspirin 81 mg daily Rosuvastatin 20 mg daily Admission HPI Per Admitting Provider History obtained from patient, family, and records. No significant medical history. Patient was lying down on a couch today when she experienced palpitations associated with achy chest pressure. [place] like she was going to pass out. Patient denies abdominal pain or dysuria symptoms. No decongestant/inordinate caffeine intake. Not drinking as much water yesterday secondary to possible congestion. Similar episode many years ago which led to a stress test as per patient. Patient noted to be in SVT upon arrival at the ER. Heart rate 200s. SVT terminated after adenosine administration at the ER. Patient currently comfortable. Medical History as above Surgical History : Cholecystectomy, cataract surgeries, fibula fracture surgery, wrist fracture surgery Family History : Breast cancer, DM, heart disease Personal/Social history : Non-smoker, no EtOH intake, post anesthesia room nurse Admission Exam Per Admitting Provider GENERAL: Comfortable, pleasant, no respiratory distress SKIN: Normal color, warm HEENT: [place] palpebral conjunctivae, no ptosis, dry buccal mucosa NECK : Supple, no tenderness CHEST : CTA, no tenderness HEART : RRR, no obvious murmurs ABDOMEN: Some distention, nontender EXTREMITIES : No LE swelling/tenderness, no other conspicuous deformities noted NEUROLOGIC : Coherent, no facial asymmetry, no other gross focality Discharge Exam General: Alert, oriented. No acute distress Neuro: No gross deficits HEENT: NC/AT CV: RRR Resp: Breath sounds clear bilaterally, no increased effort of breathing. Abdomen: Soft, nontender Extremities: No edema in lower extremities bilaterally. Updated Medication List Medication Instructions Recorded Confirmed Type [place] 3 Fish Oil 1 cap PO DAILY ##0 02/14/11 08/03/24 History ascorbic acid (vitamin C) 500 mg 500 mg PO DAILY ##0 02/14/11 08/03/24 History tablet ibuprofen 200 mg tablet 200 mg PO Q6H PRN Pain ##0 02/14/11 08/03/24 History multivitamin 1 tab PO DAILY ##0 02/14/11 08/03/24 History aspirin 81 mg tablet,delayed 81 mg PO DAILY #30 tabs 08/03/24 Rx release metoprolol succinate 25 mg 12.5 mg (1/2 x 25 mg) PO DAILY #15 08/03/24 Rx tablet,extended release 24 hr tabs rosuvastatin 20 mg tablet 20 mg PO DAILY #30 tabs 08/03/24 Rx Hospital Stay Data Consultations 08/03/24 00:57 ED Decision to Admit Stat 08/03/24 02:57 Consult Cardiology Routine Diagnostic Imagining Performed 08/02/24 23:26 CT angio chest PE protocol Stat Chest CTA 08/02/24 23:26 Exam(s): CTA CHEST IV Amt: 82 ml opti 320 EXAM: CT Angiography Chest With Intravenous Contrast CLINICAL HISTORY: Reason for exam: PE. TECHNIQUE: Axial computed tomographic angiography images of the chest with intravenous contrast. CTDI is 11.87 mGy and DLP is 5.94 mGy-cm. Automated exposure control was utilized for the study. A dose lowering technique was utilized adhering to the principles of ALARA. MIP reconstructed images were created and reviewed. COMPARISON: No relevant prior studies available. FINDINGS: LUNGS: No focal consolidation, pleural effusion, or pneumothorax. HEART: Within normal limits. VASCULATURE: No acute pulmonary embolism. THYROID: Within normal limits. MEDIASTINUM + LYMPH NODES: There are no pathologically enlarged mediastinal, hilar, or axillary lymph nodes. SUPERIOR ABDOMEN: The included portions of the superior abdomen are within normal limits. MUSCULOSKELETAL: Within normal limits. IMPRESSION: No acute pulmonary embolism. Electronically signed by: Marcus Bose MD 08/03/24 00:52 AM Pending Results Patient Have Any Pending Studies at Discharge: No Discharge Instructions Given to Patient (Per Discharging Provider) Zeynep, You are admitted with concerning palpitations. You were found to be in SVT or supraventricular tachycardia. Your symptoms resolved after a dose of adenosine. You were seen by the bilingual call center representative who recommends discharge home with the following medications: Metoprolol succinate 12.5 mg p.o. daily, aspirin 81 mg daily and rosuvastatin 20 mg daily. Please take the medications as prescribed. Cardiology also recommends that you follow-up with an lab pack chemist as an outpatient and that you also have an outpatient stress test done. Please keep close follow-up with cardiology after discharge. Cardiology has already made arrangements for follow-up and to your testing as needed. Please continue with supportive treatment at home for your COVID-19 infection. Please try to stay as hydrated as possible. Please also keep close follow up with your primary care provider after discharge. Please do not hesitate to come back to the emergency room if your symptoms worsen or return. It was a pleasure taking care of you while you were here. Total Time Total Time Spent Total Time Spent (In Minutes): 65
--- NOTE | 2024-08-04 10:33 | Electrocardiogram Report ---
Test Reason : Blood Pressure : */* mmHG Vent. Rate : 92 BPM Atrial Rate : 92 BPM P-R Int : 134 ms QRS Dur : 74 ms QT Int : 340 ms P-R-T Axes : 63 32 43 degrees QTcB Int : 420 ms Normal sinus rhythm Normal ECG When compared with ECG of 02-Aug-2024 23:15, Vent. rate has decreased by [address] no longer depressed in Inferior leads ST no longer depressed in Anterolateral leads T wave inversion no longer evident in Lateral leads Confirmed by Zak Rm ([id number]) on 08/04/2024 10:33:18 AM Referred By: REFERRED SELF Confirmed By: Zak Rm
== END 2024-08-03 18:10 | disposition home or self-care (01) ==
LOC: ED 23:07 → 2S 23:07 → 2E 08-03 06:23